=== PATIENT | female | born 1945 | race Caucasian/White ===

== ENCOUNTER → 2017-08-15 17:13 | Outpatient (CLI) | payer MEDICARE, OTHER, SELFPAY ==
[2017-08-15 17:26] LABS: Adenovirus,PCR Not Detected (NotDetected); Bordetella Pertussis Not Detected (NotDetected); Chlamydophila Pneumoniae, PCR Not Detected (NotDetected); Coronavirus 229E Not Detected (NotDetected); Coronavirus NL63 Not Detected (NotDetected); Coronavirus OC43 Not Detected (NotDetected); Coronovirus HKU1,PCR Not Detected (NotDetected); Human Metapneumovirus Not Detected (NotDetected); Influenza A, PCR Not Detected (NotDetected); Influenza AH1, 2009 Not Detected (NotDetected); Influenza AH1, PCR Not Detected (NotDetected); Influenza AH3,PCR Not Detected (NotDetected); Influenza B, PCR Not Detected (NotDetected); Mycoplasma Pneumoniae, PCR Not Detected (NotDected); Parainfluenza 1, PCR Not Detected (NotDetected); Parainfluenza 2, PCR Not Detected (NotDetected); Parainfluenza 3, PCR Not Detected (NotDetected); Parainfluenza 4, PCR Not Detected (NotDetected); Respiratory Syncytial Virus Not Detected (NotDetected); Rhinovirus/Enterovirus Not Detected (NotDetected)
--- NOTE | 2017-08-15 17:33 | XR_ITS ---
XR chest 2V HISTORY: ITS.REASON: PNEUMONIA ORDERING PHYSICIAN: Roopa London PATIENT AGE: 71 years COMPARISON: None available FINDINGS: The cardiomediastinal silhouette and pulmonary vascularity are within normal limits. The lungs are clear without infiltrates, suspicious nodules, or pleural effusions. There is mild hyperinflation with attenuation of the peripheral pulmonary vessels consistent with obstructive chronic bronchitis. There is blunting of the right CP angle consistent with chronic changes as seen on the previous chest CT of 01/06/2017 No acute bony abnormalities. IMPRESSION: No acute finding. COPD with chronic change
== END ==
PROVIDERS: PCP Nurse Practitioner; Visit Provider Nurse Practitioner
DX: J06.9 Acute upper respiratory infection, unspecified (principal); R05 Cough
CPT/HCPCS: 71046; 87486; 87581; 87633; 87798

== ENCOUNTER → 2018-04-04 12:47 | Outpatient (CLI) | payer MEDICARE, OTHER, SELFPAY ==
--- NOTE | 2018-04-04 12:53 | CT_ITS ---
CT chest wo con HISTORY: Follow-up pulmonary nodule , Right upper lobe nodule ORDERING PHYSICIAN: Darren Perez MD PATIENT AGE: 72 years COMPARISON: 01/06/2017 Technique: Axial images obtained with sagittal and coronal reformats. All CT scans at the facility use one or more dose reduction, viz: automated exposure control, ma/kV adjustment per patient size (including targeted exams where dose is matched to indication, i.e. head), or iterative reconstruction technique. FINDINGS: No mediastinal or hilar mass or adenopathy. Coronary artery calcifications are present. Normal heart size. No evidence of pericardial effusion. There is a 4 mm noncalcified nodule in the central aspect of the right upper lobe not significantly changed. Mild bronchial thickening noted. There are atelectatic changes in the right lung base. No new nodules are evident. No infiltrates or effusions. No evidence of aortic aneurysm. There is some tortuosity of the thoracic aorta. No acute bony anomalies. IMPRESSION: 1. Overall no change with no acute finding. 2. Stable or millimeter right upper lobe nodule. 3. Mild diffuse bronchial thickening suggesting chronic bronchitis.
== END ==
PROVIDERS: Family Provider Family Medicine; PCP Nurse Practitioner; Visit Provider Family Medicine
DX: R91.1 Solitary pulmonary nodule (principal); J44.1 Chronic obstructive pulmonary disease with (acute) exacerbation; H66.92 Otitis media, unspecified, left ear
CPT/HCPCS: 71250

== ENCOUNTER → 2018-07-20 16:30 | Outpatient (CLI) | payer MEDICARE, OTHER, SELFPAY ==
--- NOTE | 2018-07-20 16:36 | XR_ITS ---
EXAM: XR lumbar spine min 4V HISTORY: ITS.REASON: BILATERAL LOW BACK PAIN WITH LEFT SIDED SCIATICA ORDERING PHYSICIAN: Roopa London PATIENT AGE: 72 years COMPARISON: None FINDINGS: There is mild lumbar scoliosis convex left measures 23 degrees by the Copt technique. Endplate sclerosis with degenerative disc disease is present at L3-L4 and to a lesser degree at L4-L5. Facet arthritic changes are noted at L3 L4 L5 and S1. No fracture or dislocation. No lytic or blastic change. There is some mild anterolisthesis of L4 on L5 of 4 mm. There is straightening of lumbar lordosis. IMPRESSION: Levoscoliosis with degenerative disc disease and facet arthritic change
--- NOTE | 2018-07-20 16:36 | XR_ITS ---
XR hip LT 2-3V w/pelvis HISTORY: Left hip pain ITS.REASON: BILATERAL LOW BACK PAIN WITH LEFT SIDED SCIATICA ORDERING PHYSICIAN: Roopa London PATIENT AGE: 72 years COMPARISON: None FINDINGS: No fracture or dislocation is evident. No significant degenerative change. No lytic or blastic change. Unremarkable soft tissues IMPRESSION: Negative hip
== END ==
PROVIDERS: PCP Nurse Practitioner; Visit Provider Nurse Practitioner
DX: M54.42 Lumbago with sciatica, left side (principal)
CPT/HCPCS: 72110; 73502

== ENCOUNTER → 2018-09-04 11:14 | Outpatient (CLI) | payer MEDICARE, OTHER, SELFPAY | PROVIDERS: PCP Family Medicine; Visit Provider Nurse Practitioner | DX: M51.36 Other intervertebral disc degeneration, lumbar region (principal) ==

== ENCOUNTER → 2018-09-11 10:59 | Outpatient (CLI) | payer MEDICARE, OTHER, SELFPAY ==
--- NOTE | 2018-09-11 11:02 | MR_ITS ---
MR lumbar spine wo con, MR 3-d myelogram/MRCP HISTORY: Low back pain with left hip and buttock pain ITS.REASON: LUMBAR DDD ORDERING PHYSICIAN: Darren Perez MD PATIENT AGE: 73 years Comparison: 07/20/2018, 05/26/2012 TECHNIQUE: Standard multiplanar multiecho sequences are performed without contrast. 3-D MIP and myelographic images are also rendered and reviewed FINDINGS: There is mild lumbar scoliosis convex left measuring 24 degrees. The spinal cord and at the L1-L2 level. T12-L1: Unremarkable. L1-L2: Unremarkable. L2-L3: Degenerative disc disease with bulging disc along with facet and ligamentum flavum hypertrophy with moderate bilateral lateral recess narrowing greater on the right with mild right-sided foraminal narrowing. These findings have progressed compared to the previous exam. There is a rotary component clockwise in nature involving the lumbar spine with a scoliosis. L3-L4: Degenerative disc disease with bulging disc along with facet and ligamentum flavum hypertrophy with moderate bilateral lateral recess narrowing slightly greater on the right with moderate right-sided foraminal narrowing. These findings have progressed since the previous exam. There is narrowing of the canal at the L3-L4 level which has progressed since the previous study L4-L5: Mild degenerative disc disease with bulging disc. There is mild anterolisthesis of L4 of 3 mm. Facet and ligamentum hypertrophy with bilateral lateral recess narrowing and moderate bilateral foraminal narrowing. These findings have progressed. There has been prior laminectomy at L4-L5 and L5-S1. L5-S1: Degenerative disc disease with mild retrolisthesis of L5 of approximately 4 mm. There is bulging disc with facet and ligamentum flavum hypertrophy. There is severe left lateral recess narrowing and severe left-sided foraminal narrowing. These findings have progressed. There is minimal outpouching of the thecal sac posteriorly and on the left at the laminotomy site similar to the previous exam. No extruded herniated disc is evident. IMPRESSION: 1. Abnormal MRI of the lumbar spine with multilevel lumbar spondylosis with degenerative disc disease and bulging disc along with facet and ligamentum flavum hypertrophy with lateral recess and foraminal narrowing. These findings have progressed compared to the previous exam and are present from L2 to S1. Please see above for detailed description at each level. 2. Lumbar scoliosis convex left with a rotary component which is also progressed since the previous exam. 3. No extruded herniated disc
== END ==
PROVIDERS: PCP Family Medicine; Visit Provider Family Medicine
DX: M51.36 Other intervertebral disc degeneration, lumbar region (principal)
CPT/HCPCS: 72148; 76376

== ENCOUNTER → 2019-05-23 14:43 | Outpatient (CLI) | payer MEDICARE, OTHER, SELFPAY ==
--- NOTE | 2019-05-23 14:48 | XR_ITS ---
PROCEDURE: XR CHEST 2V CLINICAL HISTORY: COPD, BIBASILAR CRACKLES COMPARISON: CXR2V XR chest 2V from 08/15/[address] chest wo con from 04/04/2018 FINDINGS: The cardiomediastinal silhouette and pulmonary vascularity are within normal limits. The lungs are clear without infiltrates, suspicious nodules, or pleural effusions. No acute bony abnormalities. IMPRESSION: No acute findings. Dictated by: Jeison Mast MD 05/23/2019 17:53 Electronically signed by Jeison Mast MD in [place] 05/23/2019 17:53
== END ==
PROVIDERS: PCP Family Medicine; Visit Provider Nurse Practitioner
DX: R09.89 Other specified symptoms and signs involving the circulatory and respiratory systems (principal); J44.1 Chronic obstructive pulmonary disease with (acute) exacerbation
CPT/HCPCS: 71046

== ENCOUNTER → 2019-09-14 16:37 | Outpatient (CLI) | payer MEDICARE, OTHER, SELFPAY ==
--- NOTE | 2019-09-14 | XR_ITS ---
PROCEDURE: XR CHEST 2V CLINICAL HISTORY: PNEUMONIA COMPARISON: No exams were available for comparison FINDINGS: Mild emphysematous changes are noted with hyperexpansion lung moreira. There is mild scalloping of both hemidiaphragms anteriorly. The lung moreira are clear of infiltrate. Cardiac size is normal and there is no pulmonary congestion and no pleural fluid. There is a small hiatal hernia noted. IMPRESSION: Mild COPD, no acute chest pathology noted. Dictated by: Dr. Lee Harper MD 09/14/2019 17:[address] Lee Harper MD in [place] 09/14/2019 17:41
== END ==
PROVIDERS: PCP Family Medicine; Visit Provider Nurse Practitioner
DX: J18.9 Pneumonia, unspecified organism (principal)
CPT/HCPCS: 71046

== ENCOUNTER → 2020-01-03 17:04 | Outpatient (CLI) | payer MEDICARE, OTHER, SELFPAY ==
--- NOTE | 2020-01-03 | XR_ITS ---
PROCEDURE: XR CHEST 2V CLINICAL HISTORY: COUGH Cough, smoker COMPARISON: CXR2V XR chest 2V from 08/15/[address] chest wo con from 04/04/2018 XR CHEST 2V from 05/23/2019 XR CHEST 2V from 09/14/2019 FINDINGS: The cardiomediastinal silhouette and pulmonary vascularity are within normal limits. Changes of COPD. No lobar consolidation or collapse. Chronic changes are present in the left lung base No acute bony abnormalities. IMPRESSION: COPD. No change with no acute finding Dictated by: Jeison Mast MD 01/04/2020 05:37 Electronically signed by Jeison Mast MD in [place] 01/04/2020 05:37
[2020-01-03 17:48] LABS: Basophils # 0.1 K/mm3 (0-0.2); Basophils % 0.5 % (0.1-2.0); Eosinophils # 0.1 K/mm3 (0.0-0.4); Eosinophils % 0.9 % (0.1-12.0); Hematocrit 38.6 % (37.0-47.0); Hemoglobin 12.8 g/dL (12.2-16.2); Lymphocytes # 4.2 K/mm3 (0.7-4.5); Lymphocytes % 34.2 % (10-50); Mean Corpuscular HGB Conc 33.1 g/dL (31.8-35.4); Mean Corpuscular Hemoglobin 28.7 pg (27.0-31.2); Mean Corpuscular Volume 86.7 fl (81-99); Monocytes # 0.6 K/mm3 (0.1-1.0); Monocytes % 4.7 % (1.7-9.3); Neutrophils # 7.3 K/mm3 (1.8-7.8); Neutrophils % 59.6 % (37.0-80.0); Platelet Count 338 K/mm3 (142-424); Red Blood Count 4.46 M/mm3 (4.20-5.40); Red Cell Distribution Width 14.9 % (11.5-17.5); White Blood Count 12.2 K/mm3 (4.8-10.8)
[2020-01-03 17:52] LABS: Chloride 97 mmol/L (98-107); Sodium 134 mmol/L (136-145)
[2020-01-03 17:53] LABS: Potassium 3.7 mmoL/L (3.5-5.1)
[2020-01-03 17:56] LABS: Anion Gap 9.7 mEq/L (5-15); Blood Urea Nitrogen 26 mg/dl (7-17); Calcium 9.2 mg/dl (8.4-10.2); Carbon Dioxide 31 mmol/L (22.0-30.0); Estimated Glomerular Filt Rate 48 ml/min (>60); GFR (African American) 59 ML/MIN (>60); Glucose 92 mg/dl (74-100)
[2020-01-03 18:05] LABS: NT Pro Brain Natriuretic Pep. 84.1 pg/mL (0-450)
== END ==
PROVIDERS: PCP Nurse Practitioner; Visit Provider Nurse Practitioner
DX: R05 Cough (principal); R06.02 Shortness of breath
CPT/HCPCS: 36415; 71046; 80048; 83880; 85025

== ENCOUNTER → 2020-04-22 17:26 | Outpatient (CLI) | payer MEDICARE, OTHER, SELFPAY ==
[2020-04-22 18:07] LABS: Basophils # 0.1 K/mm3 (0-0.2); Basophils % 0.9 % (0.1-2.0); Eosinophils # 0.2 K/mm3 (0.0-0.4); Eosinophils % 1.9 % (0.1-12.0); Hematocrit 37.3 % (37.0-47.0); Hemoglobin 12.6 g/dL (12.2-16.2); Lymphocytes # 5.2 K/mm3 (0.7-4.5); Lymphocytes % 44.7 % (10-50); Mean Corpuscular HGB Conc 33.7 g/dL (31.8-35.4); Mean Corpuscular Hemoglobin 28.2 pg (27.0-31.2); Mean Corpuscular Volume 83.7 fl (81-99); Mean Platelet Volume 6.7 fl (7.4-10.4); Monocytes # 0.9 K/mm3 (0.1-1.0); Monocytes % 7.7 % (1.7-9.3); Neutrophils # 5.2 K/mm3 (1.8-7.8); Neutrophils % 44.8 % (37.0-80.0); Platelet Count 357 K/mm3 (142-424); Red Blood Count 4.45 M/mm3 (4.20-5.40); Red Cell Distribution Width 17.2 % (11.5-17.5); White Blood Count 11.6 K/mm3 (4.8-10.8)
[2020-04-22 18:11] LABS: Chloride 96 mmol/L (98-107); Potassium 3.7 mmoL/L (3.5-5.1); Sodium 137 mmol/L (136-145)
[2020-04-22 18:14] LABS: Alanine Aminotransferase 64 U/L (12-78); Albumin Level 4.2 g/dl (3.5-5.0); Albumin/Globulin Ratio 1.6 (1.1-1.8); Alkaline Phosphatase 78 U/L (38-126); Anion Gap 10.7 mEq/L (5-15); Aspartate Amino Transferase 63 U/L (14-36); Bilirubin,Total 0.4 mg/dl (0.2-1.3); Blood Urea Nitrogen 21 mg/dl (7-17); Carbon Dioxide 34 mmol/L (22.0-30.0); Estimated Glomerular Filt Rate 54 ml/min (>60); GFR (African American) 65 ML/MIN (>60); Globulin 2.7 g/dL (1.3-3.2); Glucose 105 mg/dl (74-100); Total Protein,Serum 6.9 g/dl (6.3-8.2)
[2020-04-25 10:24] LABS: Covid-19 Nasal PCR Sendout Lex NOT DETECTED
== END ==
PROVIDERS: PCP Family Medicine; Visit Provider Nurse Practitioner
DX: Z03.818 Encounter for observation for suspected exposure to other biological agents ruled out (principal)
CPT/HCPCS: 80053; 85025; U0004

== ENCOUNTER → 2020-07-22 15:28 | Outpatient (CLI) | payer MEDICARE, OTHER, SELFPAY ==
--- NOTE | 2020-07-22 | CA_ITS ---
APPROVED REPORT Right Lower Extremity Venous Study for DVT. [employer]: JACI Indications Lower Extremity Pain: Right Lower Extremity Edema: Right PAIN Vein Imaging CFV (R): compressive, spontaneous, phasic, augmentation SFJ (R): compressive, spontaneous, phasic, augmentation FEM (R): compressive, spontaneous, phasic, augmentation POP (R): compressive, spontaneous, phasic, augmentation DFV (R): compressive, spontaneous, phasic, augmentation PTV (R): compressive, spontaneous, phasic, augmentation GSV (R): compressive, spontaneous, phasic, augmentation SSV (R): compressive, spontaneous, phasic, augmentation Peroneals (R):compressive, spontaneous, phasic, augmentation GAS (R): compressive, spontaneous, phasic, augmentation Findings RLE negative for DVT/SVT. Vessels fully compressible. Conclusion RLE negative for DVT/SVT. Vessels fully compressible. Electronically signed by : Jeison Mast MD 07/23/2020 08:32:21
== END ==
PROVIDERS: PCP Family Medicine; Visit Provider Nurse Practitioner
DX: M79.604 Pain in right leg (principal)
CPT/HCPCS: 93971

== ENCOUNTER → 2021-06-30 14:25 | Outpatient (CLI) | payer MEDICARE, OTHER, SELFPAY ==
[2021-06-30 16:03] LABS: Basophils # 0.1 K/mm3 (0-0.2); Basophils % 0.5 % (0.1-2.0); Eosinophils % 0.1 % (0.1-12.0); Hematocrit 30.1 % (37.0-47.0); Hemoglobin 9.5 g/dL (12.2-16.2); Lymphocytes # 1.3 K/mm3 (0.7-4.5); Lymphocytes % 14.7 % (10-50); Mean Corpuscular HGB Conc 31.4 g/dL (31.8-35.4); Mean Corpuscular Hemoglobin 24.2 pg (27.0-31.2); Mean Corpuscular Volume 76.9 fl (81-99); Mean Platelet Volume 7.8 fl (7.4-10.4); Monocytes # 0.2 K/mm3 (0.1-1.0); Neutrophils # 7.5 K/mm3 (1.8-7.8); Neutrophils % 82.6 % (37.0-80.0); Platelet Count 556 K/mm3 (142-424); Red Blood Count 3.92 M/mm3 (4.20-5.40); Red Cell Distribution Width 16.3 % (11.5-17.5); White Blood Count 9.1 K/mm3 (4.8-10.8)
== END ==
PROVIDERS: PCP Nurse Practitioner; Visit Provider Nurse Practitioner
DX: Z20.822 Contact with and (suspected) exposure to COVID-19 (principal)
CPT/HCPCS: 36415; 85025; 87275; 87276; C9803; U0003; U0005

== ENCOUNTER → 2021-08-28 09:04 | Outpatient (CLI) | payer MEDICARE, OTHER, SELFPAY ==
--- NOTE | 2021-08-28 09:09 | CT_ITS ---
FINAL REPORT CLINICAL HISTORY: RLQ ABD PAIN FINDINGS: CT OF THE ABDOMEN AND PELVIS WITH CONTRAST Axial CT images of the abdomen and pelvis were obtained after the administration of oral and iv contrast. Coronal reformatted images were also obtained and reviewed.This study was performed with techniques to keep radiation doses as low as reasonably achievable (ALARA). Individualized dose reduction techniques using automated exposure control or adjustment of mA and/or kV according to the patient's size were employed. Abdomen: There is mild bibasilar atelectasis. There is a large hiatal hernia. The heart is normal in size. The liver has an unremarkable appearance, without evidence of mass or biliary ductal dilatation. There has been cholecystectomy. The spleen is unremarkable. No adrenal mass is present. The pancreas has an unremarkable appearance. The kidneys are normal, without evidence of mass or hydronephrosis. The aorta is normal in caliber. There is no free fluid or adenopathy. No mass or abnormal fluid collection is seen. There is levoscoliosis with 10 mm of left lateral subluxation of L4 on L5. Pelvis: The appendix is not well-visualized. There are no secondary signs suggesting appendicitis. The urinary bladder is unremarkable. No inflammatory process is seen. There is no evidence of mass or adenopathy. There is diverticulosis of the sigmoid colon. There has been hysterectomy. IMPRESSION: Large hiatal hernia. Sigmoid diverticulosis without evidence of diverticulitis. No evidence of appendicitis. Levoscoliosis with left lateral subluxation of L4 on L5. Reviewed, Interpreted and Dictated by Zia Carrion III, MD Transcribed by Geronimo Carlin Authenticated by Zia Carrion III, MD on 08/28/2021 11:10:57 AM [facility]
== END ==
PROVIDERS: PCP Nurse Practitioner; Visit Provider Nurse Practitioner
DX: R10.31 Right lower quadrant pain (principal)
CPT/HCPCS: 74177; Q9967

== ENCOUNTER → 2021-10-16 09:21 | Outpatient (CLI) | payer MEDICARE, OTHER, SELFPAY ==
--- NOTE | 2021-10-16 09:24 | XR_ITS ---
FINAL REPORT TECHNIQUE: Bone densitometry calculations of the lumbar spine and left hip were obtained. CLINICAL HISTORY: . osteoporosis FINDINGS: Using L1-4, the bone mineral density of the spine is 1.017 g/cm2, corresponding to T-score of -0.3. These values may be falsely elevated secondary to hypertrophic change. Using the left hip, the bone mineral density of the femoral neck is 0.614 g/cm2, corresponding to a T-score of -2.7. IMPRESSION: Osteoporosis: Lowest T-score is at or below -2.5. This patient's T-score meets the World Health Organization criteria for osteoporosis. Reviewed, Interpreted and Dictated by Zia Carrion III, MD Transcribed by Bushra Felipe Authenticated by Zia Carrion III, MD on 10/16/2021 11:01:11 AM [facility]
== END ==
PROVIDERS: PCP Nurse Practitioner; Visit Provider Nurse Practitioner
DX: Z78.0 Asymptomatic menopausal state (principal); M81.0 Age-related osteoporosis without current pathological fracture
CPT/HCPCS: 77080

== ENCOUNTER → 2022-06-24 14:40 | Outpatient (CLI) | payer MEDICARE, OTHER, SELFPAY ==
[2022-06-24 18:56] LABS: Basophils # 0.1 K/mm3 (0-0.2); Eosinophils # 0.2 K/mm3 (0.0-0.4); Eosinophils % 2.2 % (0.1-12.0); Hematocrit 37.3 % (37.0-47.0); Hemoglobin 11.8 g/dL (12.2-16.2); Lymphocytes # 3.8 K/mm3 (0.7-4.5); Lymphocytes % 39.6 % (10-50); Mean Corpuscular HGB Conc 31.5 g/dL (31.8-35.4); Mean Corpuscular Hemoglobin 27.6 pg (27.0-31.2); Mean Corpuscular Volume 87.4 fl (81-99); Monocytes # 0.8 K/mm3 (0.1-1.0); Monocytes % 7.8 % (1.7-9.3); Neutrophils # 4.7 K/mm3 (1.8-7.8); Neutrophils % 49.4 % (37.0-80.0); Platelet Count 547 K/mm3 (142-424); Red Blood Count 4.26 M/mm3 (4.20-5.40); Red Cell Distribution Width 14.2 % (11.5-17.5); White Blood Count 9.6 K/mm3 (4.8-10.8)
[2022-06-24 19:03] LABS: Cholesterol 170 mg/dl (140-200); HDL Cholesterol 83 mg/dl (40-60); Triglycerides 72 mg/dl (30-150); VLDL Cholesterol 14 mg/dL (0-40)
[2022-06-24 19:14] LABS: Direct LDL Cholesterol 64.04 mg/dL (100-129)
[2022-06-24 19:22] LABS: 25-OH Vitamin D, Total 56.5 ng/mL (30-100)
[2022-06-24 19:34] LABS: Thyroid Stimulating Hormone 1.56 uIU/mL (0.465-4.68)
[2022-06-24 19:53] LABS: Vitamin B12 428 pg/mL (239-931)
[2022-06-24 20:07] LABS: Hemoglobin A1C 6.1 % (4.0-6.0)
== END ==
PROVIDERS: PCP Nurse Practitioner; Visit Provider Nurse Practitioner
DX: D64.9 Anemia, unspecified (principal); E53.8 Deficiency of other specified B group vitamins; E55.9 Vitamin D deficiency, unspecified; E78.5 Hyperlipidemia, unspecified; I10 Essential (primary) hypertension; J44.9 Chronic obstructive pulmonary disease, unspecified; K21.9 Gastro-esophageal reflux disease without esophagitis; R05.9 Cough, unspecified; R73.01 Impaired fasting glucose
CPT/HCPCS: 80061; 82306; 82607; 83036; 84443; 85025

== ENCOUNTER → 2022-06-29 10:36 | Outpatient (CLI) | payer MEDICARE, OTHER, SELFPAY ==
--- NOTE | 2022-06-29 10:36 | US_ITS ---
FINAL REPORT CLINICAL HISTORY: right groin pain FINDINGS: Sonographic images were obtained of a palpable area in the right lower groin. A right inguinal hernia is noted containing bowel. In addition, several presumed reactive nodes are noted in the right inguinal region. IMPRESSION: Right inguinal hernia containing bowel. Several presumed reactive nodes in the right inguinal region. Reviewed, Interpreted and Dictated by Zia Carrion III, MD Transcribed by Bushra Felipe Authenticated and [facility]
== END ==
PROVIDERS: PCP Family Medicine; Visit Provider Nurse Practitioner
DX: R10.813 Right lower quadrant abdominal tenderness (principal)
CPT/HCPCS: 76882

== ENCOUNTER → 2022-09-09 10:57 | Outpatient (CLI) | payer MEDICARE, OTHER, SELFPAY ==
[2022-09-09 19:26] LABS: Adenovirus,PCR Not Detected (NotDetected); Bordetella Pertussis Not Detected (NotDetected); Chlamydophila Pneumoniae, PCR Not Detected (NotDetected); Coronavirus 229E Not Detected (NotDetected); Coronavirus NL63 Not Detected (NotDetected); Coronavirus OC43 Not Detected (NotDetected); Coronovirus HKU1,PCR Not Detected (NotDetected); Human Metapneumovirus Not Detected (NotDetected); Influenza A, PCR Not Detected (NotDetected); Influenza AH1, 2009 Not Detected (NotDetected); Influenza AH1, PCR Not Detected (NotDetected); Influenza AH3,PCR Not Detected (NotDetected); Influenza B, PCR Not Detected (NotDetected); Mycoplasma Pneumoniae, PCR Not Detected (NotDetected); Parainfluenza 1, PCR Not Detected (NotDetected); Parainfluenza 2, PCR Not Detected (NotDetected); Parainfluenza 3, PCR Not Detected (NotDetected); Parainfluenza 4, PCR Not Detected (NotDetected); Respiratory Syncytial Virus Not Detected (NotDetected); Rhinovirus/Enterovirus Not Detected (NotDetected)
[2022-09-09 19:32] LABS: Basophils % 0.5 % (0.1-2.0); Eosinophils # 0.1 K/mm3 (0.0-0.4); Eosinophils % 1.3 % (0.1-12.0); Hematocrit 28.2 % (37.0-47.0); Hemoglobin 9.3 g/dL (12.2-16.2); Lymphocytes # 2.4 K/mm3 (0.7-4.5); Lymphocytes % 34.7 % (10-50); Mean Corpuscular HGB Conc 32.9 g/dL (31.8-35.4); Mean Corpuscular Hemoglobin 25.8 pg (27.0-31.2); Mean Corpuscular Volume 78.6 fl (81-99); Mean Platelet Volume 8.5 fl (7.4-10.4); Monocytes # 0.7 K/mm3 (0.1-1.0); Monocytes % 9.9 % (1.7-9.3); Neutrophils # 3.7 K/mm3 (1.8-7.8); Neutrophils % 53.6 % (37.0-80.0); Platelet Count 535 K/mm3 (142-424); Red Blood Count 3.59 M/mm3 (4.20-5.40); Red Cell Distribution Width 16.4 % (11.5-17.5)
[2022-09-10 03:17] LABS: Coronavirus 19, PCR Detected (NotDetected)
== END ==
PROVIDERS: PCP Nurse Practitioner; Visit Provider Nurse Practitioner
DX: J06.9 Acute upper respiratory infection, unspecified (principal); R05.8 Other specified cough; B97.21 SARS-associated coronavirus as the cause of diseases classified elsewhere; R06.02 Shortness of breath
CPT/HCPCS: 85025; 87581; 87632; 87798; C9803; U0003; U0005

== ENCOUNTER → 2022-09-10 12:22 | Outpatient (CLI) | payer MEDICARE, OTHER, SELFPAY ==
--- NOTE | 2022-09-10 12:29 | XR_ITS ---
FINAL REPORT CLINICAL HISTORY: COPD exacerbation, pneumonia COMPARISON: 01/03/2020 FINDINGS: Two views of the chest were obtained. The heart size and pulmonary vascularity are within normal limits. The mediastinum is normal. The lungs are hyperinflated which is consistent with COPD. There is no pneumothorax. There is a moderate-sized hiatal hernia. The bony thorax is intact. IMPRESSION: No acute cardiopulmonary process. Reviewed, Interpreted and Dictated by Zia Carrion III, MD Transcribed by Bushra Felipe Authenticated and . [facility]
== END ==
PROVIDERS: PCP Family Medicine; Visit Provider Nurse Practitioner
DX: J18.9 Pneumonia, unspecified organism (principal); J44.1 Chronic obstructive pulmonary disease with (acute) exacerbation
CPT/HCPCS: 71046

== ENCOUNTER → 2022-09-16 16:35 | Outpatient (CLI) | payer MEDICARE, OTHER, SELFPAY ==
[2022-09-16 16:54] LABS: Blood Urea Nitrogen 25 mg/dl (7-17); Calcium 9.3 mg/dl (8.4-10.2); Carbon Dioxide 28 mmol/L (22.0-30.0); Chloride 104 mmol/L (98-107); Estimated Glomerular Filt Rate 61 ml/min (>60); GFR (African American) 73 ML/MIN (>60); Glucose 101 mg/dl (74-100); Sodium 137 mmol/L (136-145)
[2022-09-16 16:55] LABS: Anion Gap 9.1 mEq/L (5-15); Potassium 4.1 mmoL/L (3.5-5.1)
[2022-09-16 17:02] LABS: Basophils % 0.2 % (0.1-2.0); Eosinophils # 0.1 K/mm3 (0.0-0.4); Eosinophils % 0.7 % (0.1-12.0); Hematocrit 32.5 % (37.0-47.0); Hemoglobin 10.3 g/dL (12.2-16.2); Lymphocytes # 2.4 K/mm3 (0.7-4.5); Lymphocytes % 20.8 % (10-50); Mean Corpuscular HGB Conc 31.6 g/dL (31.8-35.4); Mean Corpuscular Hemoglobin 24.9 pg (27.0-31.2); Mean Corpuscular Volume 78.8 fl (81-99); Monocytes # 0.9 K/mm3 (0.1-1.0); Monocytes % 7.4 % (1.7-9.3); Neutrophils # 8.2 K/mm3 (1.8-7.8); Neutrophils % 70.9 % (37.0-80.0); Platelet Count 671 K/mm3 (142-424); Red Blood Count 4.13 M/mm3 (4.20-5.40); Red Cell Distribution Width 17.1 % (11.5-17.5); White Blood Count 11.6 K/mm3 (4.8-10.8)
== END ==
PROVIDERS: Visit Provider Nurse Practitioner
DX: J18.9 Pneumonia, unspecified organism (principal); E55.9 Vitamin D deficiency, unspecified
CPT/HCPCS: 80048; 85025

== ENCOUNTER → 2023-01-13 23:00 | Outpatient (CLI) | payer MEDICARE, OTHER, SELFPAY ==
[2023-01-13 18:23] LABS: Basophils # 0.1 K/mm3 (0-0.2); Basophils % 0.9 % (0.1-2.0); Eosinophils # 0.2 K/mm3 (0.0-0.4); Eosinophils % 2.3 % (0.1-12.0); Hematocrit 40.7 % (37.0-47.0); Hemoglobin 12.5 g/dL (12.2-16.2); Lymphocytes # 3.6 K/mm3 (0.7-4.5); Lymphocytes % 34.6 % (10-50); Mean Corpuscular HGB Conc 30.7 g/dL (31.8-35.4); Mean Corpuscular Hemoglobin 27.1 pg (27.0-31.2); Mean Corpuscular Volume 88.3 fl (81-99); Mean Platelet Volume 8.2 fl (7.4-10.4); Monocytes % 9.6 % (1.7-9.3); Neutrophils # 5.5 K/mm3 (1.8-7.8); Neutrophils % 52.7 % (37.0-80.0); Platelet Count 447 K/mm3 (142-424); Red Blood Count 4.61 M/mm3 (4.20-5.40); Red Cell Distribution Width 16.2 % (11.5-17.5); White Blood Count 10.5 K/mm3 (4.8-10.8)
== END ==
PROVIDERS: PCP Nurse Practitioner; Visit Provider Nurse Practitioner
DX: J06.9 Acute upper respiratory infection, unspecified (principal); J44.1 Chronic obstructive pulmonary disease with (acute) exacerbation; R09.89 Other specified symptoms and signs involving the circulatory and respiratory systems
CPT/HCPCS: 85025; 87635; C9803; U0003; U0005

== ENCOUNTER → 2023-01-14 11:46 | Outpatient (CLI) | payer MEDICARE, OTHER, SELFPAY ==
--- NOTE | 2023-01-14 11:53 | XR_ITS ---
FINAL REPORT CLINICAL HISTORY: COPD exacerbation, LLL pneumonia COMPARISON: 09/10/2022 FINDINGS: There is no evidence of effusion or other pleural disease. Emphysema is noted. The mediastinum has a normal appearance. There is a moderate-sized hiatal hernia which is stable. The cardiac silhouette is unremarkable. IMPRESSION: No acute process. Reviewed, Interpreted and Dictated by Suraj Guzman MD Transcribed by Ramonita Mac Authenticated and [facility]
== END ==
PROVIDERS: PCP Nurse Practitioner; Visit Provider Nurse Practitioner
DX: J06.9 Acute upper respiratory infection, unspecified (principal); J44.1 Chronic obstructive pulmonary disease with (acute) exacerbation
CPT/HCPCS: 71046

== ENCOUNTER 2023-09-16 16:36 | Outpatient (CLI) | payer MEDICARE, OTHER, SELFPAY ==
[2023-09-15 20:00] LABS: Basophils % 0.1 % (0.1-2.0); Eosinophils % 0.3 % (0.1-12.0); Hematocrit 23.5 % (37.0-47.0); Hemoglobin 7.1 g/dL (12.2-16.2); Lymphocytes # 2.4 K/mm3 (0.7-4.5); Lymphocytes % 28.5 % (10-50); Mean Corpuscular HGB Conc 30.2 g/dL (31.8-35.4); Mean Corpuscular Hemoglobin 22.1 pg (27.0-31.2); Mean Corpuscular Volume 73.1 fl (81-99); Monocytes # 0.5 K/mm3 (0.1-1.0); Neutrophils # 5.5 K/mm3 (1.8-7.8); Neutrophils % 64.9 % (37.0-80.0); Platelet Count 448 K/mm3 (142-424); Red Blood Count 3.21 M/mm3 (4.20-5.40); White Blood Count 8.5 K/mm3 (4.8-10.8)
[2023-09-15 20:03] LABS: Red Cell Distribution Width 28.6 % (11.5-17.5)
[2023-09-15 20:09] LABS: Alanine Aminotransferase 27 U/L (12-78); Albumin Level 3.8 g/dl (3.5-5.0); Albumin/Globulin Ratio 1.6 (1.1-1.8); Alkaline Phosphatase 64 U/L (38-126); Aspartate Amino Transferase 37 U/L (14-36); Bilirubin,Total 0.3 mg/dl (0.2-1.3); Blood Urea Nitrogen 16 mg/dl (7-17); Calcium 9.4 mg/dl (8.4-10.2); Carbon Dioxide 28 mmol/L (22.0-30.0); Chloride 105 mmol/L (98-107); Estimated Glomerular Filt Rate 60 ml/min (>60); GFR (African American) 73 ML/MIN (>60); Globulin 2.4 g/dL (1.3-3.2); Glucose 94 mg/dl (74-100); Sodium 136 mmol/L (136-145); Total Protein,Serum 6.2 g/dl (6.3-8.2)
[2023-09-15 20:39] LABS: Thyroid Stimulating Hormone 1.03 uIU/mL (0.465-4.68)
[2023-09-15 20:58] LABS: Vitamin B12 297 pg/mL (239-931)
[2023-09-16 01:44] LABS: Iron 169 ug/dL (37-170)
[2023-09-16 01:53] LABS: Total Iron Binding Capacity 542 ug/dL (265-497)
[2023-09-16 19:44] LABS: Hemoglobin A1C 5.5 % (4.0-6.0)
== END 2023-09-16 23:59 ==
LOC: LAB.DROPOF 16:37
PROVIDERS: PCP Nurse Practitioner; Visit Provider Nurse Practitioner
DX: D64.9 Anemia, unspecified (principal); E53.8 Deficiency of other specified B group vitamins; E55.9 Vitamin D deficiency, unspecified; J44.1 Chronic obstructive pulmonary disease with (acute) exacerbation; K21.9 Gastro-esophageal reflux disease without esophagitis; Z79.899 Other long term (current) drug therapy
CPT/HCPCS: 80053; 82607; 83036; 83540; 83550; 84443; 85025

== ENCOUNTER 2023-09-17 14:56 | Outpatient (CLI) | payer MEDICARE, OTHER, SELFPAY ==
--- NOTE | 2023-09-17 14:58 | XR_ITS ---
PROCEDURE INFORMATION: Exam: XR Chest Exam date and time: 09/17/2023 2:54 PM Age: 78 years old Clinical indication: Shortness of breath and other: Weakness, dizziness; Additional info: Copd with exacerbation, dizziness TECHNIQUE: Imaging protocol: Radiologic exam of the chest. Views: 2 views. COMPARISON: CR XR CHEST 2V 01/14/2023 12:12 PM FINDINGS: Lungs: Regions of bronchiectasis at the lung bases. Pleural spaces: Unremarkable. No pleural effusion. No pneumothorax. Heart/Mediastinum: Unremarkable. No cardiomegaly. Bones/joints: Unremarkable. IMPRESSION: No evidence of acute cardiopulmonary disease.
== END 2023-09-17 23:59 ==
PROVIDERS: PCP Family Medicine; Visit Provider Nurse Practitioner
DX: J44.1 Chronic obstructive pulmonary disease with (acute) exacerbation (principal); R42 Dizziness and giddiness
CPT/HCPCS: 71046

== ENCOUNTER 2023-09-26 19:47 | Outpatient (CLI) | payer MEDICARE, OTHER, SELFPAY ==
[2023-09-26 19:10] LABS: Basophils % 0.1 % (0.1-2.0); Eosinophils % 0.1 % (0.1-12.0); Hematocrit 33.7 % (37.0-47.0); Hemoglobin 10.4 g/dL (12.2-16.2); Lymphocytes # 1.5 K/mm3 (0.7-4.5); Lymphocytes % 12.8 % (10-50); Mean Corpuscular HGB Conc 30.8 g/dL (31.8-35.4); Mean Corpuscular Hemoglobin 25.5 pg (27.0-31.2); Mean Corpuscular Volume 82.9 fl (81-99); Mean Platelet Volume 8.5 fl (7.4-10.4); Monocytes # 0.5 K/mm3 (0.1-1.0); Monocytes % 4.2 % (1.7-9.3); Neutrophils # 9.6 K/mm3 (1.8-7.8); Neutrophils % 82.8 % (37.0-80.0); Platelet Count 657 K/mm3 (142-424); Red Blood Count 4.07 M/mm3 (4.20-5.40); White Blood Count 11.6 K/mm3 (4.8-10.8)
[2023-09-26 19:15] LABS: Red Cell Distribution Width 30.4 % (11.5-17.5)
== END 2023-09-26 23:59 ==
PROVIDERS: PCP Nurse Practitioner; Visit Provider Nurse Practitioner
DX: E55.9 Vitamin D deficiency, unspecified (principal); Z68.25 Body mass index [BMI] 25.0-25.9, adult
CPT/HCPCS: 85025

== ENCOUNTER 2024-01-20 09:10 | Outpatient (CLI) | payer MEDICARE, OTHER, SELFPAY ==
--- NOTE | 2024-01-20 09:15 | XR_ITS ---
FINAL REPORT CLINICAL HISTORY: COPD, LLL rales COMPARISON: 01/14/2023 FINDINGS: TWO-VIEW CHEST The heart size is normal. The mediastinum is normal. The lungs are hyperinflated consistent with COPD. There are mild but worsening bibasilar opacities, may represent atelectasis or pneumonia. There is a moderate hiatal hernia. There is no pneumothorax. IMPRESSION: Mild but worsening bibasilar atelectasis or pneumonia. Reviewed, Interpreted and Dictated by Zia Carrion III, MD Transcribed by Daisy Cline Authenticated and [facility]
== END 2024-01-20 23:59 | disposition home or self-care (01) ==
LOC: RAD 09:12
PROVIDERS: PCP Nurse Practitioner; Visit Provider Nurse Practitioner
DX: J44.1 Chronic obstructive pulmonary disease with (acute) exacerbation (principal); R09.89 Other specified symptoms and signs involving the circulatory and respiratory systems; Z72.0 Tobacco use
CPT/HCPCS: 71046

== ENCOUNTER 2024-01-25 12:57 | Outpatient (CLI) | payer MEDICARE, OTHER, SELFPAY ==
[2024-01-25 18:43] LABS: Basophils # 0.1 K/mm3 (0-0.2); Basophils % 0.4 % (0.1-2.0); Eosinophils # 0.1 K/mm3 (0.0-0.4); Eosinophils % 0.8 % (0.1-12.0); Hematocrit 45.2 % (37.0-47.0); Hemoglobin 14.2 g/dL (12.2-16.2); Lymphocytes # 1.9 K/mm3 (0.7-4.5); Lymphocytes % 13.9 % (10-50); Mean Corpuscular HGB Conc 31.4 g/dL (31.8-35.4); Mean Corpuscular Hemoglobin 28.7 pg (27.0-31.2); Mean Corpuscular Volume 91.4 fl (81-99); Monocytes # 0.8 K/mm3 (0.1-1.0); Monocytes % 5.5 % (1.7-9.3); Neutrophils # 10.9 K/mm3 (1.8-7.8); Neutrophils % 79.4 % (37.0-80.0); Platelet Count 480 K/mm3 (142-424); Red Blood Count 4.95 M/mm3 (4.20-5.40); Red Cell Distribution Width 16.5 % (11.5-17.5); White Blood Count 13.7 K/mm3 (4.8-10.8)
[2024-01-25 19:00] LABS: Alanine Aminotransferase 26 U/L (12-78); Albumin Level 4.1 g/dl (3.5-5.0); Albumin/Globulin Ratio 1.4 (1.1-1.8); Alkaline Phosphatase 63 U/L (38-126); Aspartate Amino Transferase 37 U/L (14-36); Bilirubin,Total 0.4 mg/dl (0.2-1.3); Blood Urea Nitrogen 34 mg/dl (7-17); Calcium 9.7 mg/dl (8.4-10.2); Carbon Dioxide 29 mmol/L (22.0-30.0); Chloride 101 mmol/L (98-107); Estimated Glomerular Filt Rate 40 ml/min (>60); GFR (African American) 48 ML/MIN (>60); Globulin 2.9 g/dL (1.3-3.2); Glucose 91 mg/dl (74-100); Sodium 137 mmol/L (136-145)
== END 2024-01-25 23:59 | disposition home or self-care (01) ==
LOC: LAB.DROPOF 01-26 10:06
PROVIDERS: PCP Nurse Practitioner; Visit Provider Nurse Practitioner
DX: J18.9 Pneumonia, unspecified organism (principal)
CPT/HCPCS: 80053; 85025

== ENCOUNTER 2024-02-14 11:36 | Outpatient (CLI) | payer MEDICARE, OTHER, SELFPAY ==
--- NOTE | 2024-02-14 11:39 | XR_ITS ---
FINAL REPORT CLINICAL HISTORY: f/u pneumonia COMPARISON: 01/20/2024 FINDINGS: Two views of the chest were obtained. The heart size and pulmonary vascularity are within normal limits. There is a moderate hiatal hernia. The lungs are hyperinflated consistent with COPD. Mild bibasilar atelectasis or scarring is noted. There is no pneumothorax. The bony thorax is intact. IMPRESSION: Mild bibasilar atelectasis or scarring. Reviewed, Interpreted and Dictated by Zia Carrion III, MD Transcribed by Ramonita Mac Authenticated and [facility]
== END 2024-02-14 23:59 | disposition home or self-care (01) ==
LOC: RAD 11:37
PROVIDERS: PCP Family Medicine; Visit Provider Nurse Practitioner
DX: J18.9 Pneumonia, unspecified organism (principal); Z72.0 Tobacco use
CPT/HCPCS: 71046

== ENCOUNTER 2024-02-20 10:23 | Outpatient (CLI) | payer MEDICARE, OTHER, SELFPAY ==
[2024-02-20 18:47] LABS: Basophils # 0.1 K/mm3 (0-0.2); Basophils % 0.8 % (0.1-2.0); Eosinophils # 0.1 K/mm3 (0.0-0.4); Hematocrit 40.9 % (37.0-47.0); Hemoglobin 12.7 g/dL (12.2-16.2); Lymphocytes # 3.3 K/mm3 (0.7-4.5); Lymphocytes % 36.4 % (10-50); Mean Corpuscular HGB Conc 31.1 g/dL (31.8-35.4); Mean Corpuscular Hemoglobin 29.6 pg (27.0-31.2); Mean Corpuscular Volume 95.2 fl (81-99); Mean Platelet Volume 9.5 fl (7.4-10.4); Monocytes # 0.8 K/mm3 (0.1-1.0); Monocytes % 8.6 % (1.7-9.3); Neutrophils # 4.8 K/mm3 (1.8-7.8); Neutrophils % 53.3 % (37.0-80.0); Platelet Count 431 K/mm3 (142-424); Red Blood Count 4.29 M/mm3 (4.20-5.40)
[2024-02-20 19:17] LABS: Anion Gap 10.1 mEq/L (5-15); Blood Urea Nitrogen 22 mg/dl (7-17); Calcium 10.1 mg/dl (8.4-10.2); Carbon Dioxide 29 mmol/L (22.0-30.0); Chloride 107 mmol/L (98-107); Chol/HDL Ratio 2.2 (1-3.5); Cholesterol 167 mg/dl (140-200); Estimated Glomerular Filt Rate 69 ml/min (>60); GFR (African American) 84 ML/MIN (>60); Glucose 97 mg/dl (74-100); HDL Cholesterol 75 mg/dl (40-60); Potassium 4.1 mmoL/L (3.5-5.1); Sodium 142 mmol/L (136-145); Triglycerides 86 mg/dl (30-150); VLDL Cholesterol 17 mg/dL (0-40)
[2024-02-20 19:27] LABS: Direct LDL Cholesterol 69.78 mg/dL (100-129)
[2024-02-20 19:34] LABS: 25-OH Vitamin D, Total 68.2 ng/mL (30-100)
[2024-02-20 19:51] LABS: Thyroid Stimulating Hormone 0.25 uIU/mL (0.465-4.68)
[2024-02-20 20:49] LABS: Iron 71 ug/dL (37-170)
[2024-02-20 20:53] LABS: Vitamin B12 > 1000 pg/mL (239-931)
[2024-02-20 20:59] LABS: Total Iron Binding Capacity 381 ug/dL (265-497)
[2024-02-20 21:10] LABS: Creatinine,Urine Random 68 mg/dL (Not Estab.); Microalbumin < 6.000 mg/L (0-16.7)
== END 2024-02-20 23:59 | disposition home or self-care (01) ==
LOC: LAB.DROPOF 02-21 10:24
PROVIDERS: PCP Nurse Practitioner; Visit Provider Nurse Practitioner
DX: D64.9 Anemia, unspecified; I10 Essential (primary) hypertension; E78.5 Hyperlipidemia, unspecified; E53.8 Deficiency of other specified B group vitamins; E55.9 Vitamin D deficiency, unspecified; I25.10 Atherosclerotic heart disease of native coronary artery without angina pectoris; R06.02 Shortness of breath
CPT/HCPCS: 80048; 80061; 82043; 82306; 82570; 82607; 83540; 83550; 84443; 85025

== ENCOUNTER 2024-03-06 11:00 | Outpatient (CLI) | payer MEDICARE, OTHER, SELFPAY ==
--- NOTE | 2024-03-06 11:00 | NM_ITS ---
APPROVED REPORT Exam: Nuclear Stress Test Indication: CAD, SOB, Fatigue, High cholesterol, Tobacco use, Family history Patient Location: Outpatient Stress Tech: America Norton NM Tech:Mary Garcia, ARRT, RT (R)(N) Ht: 5 ft 1 in Wt: 123 lbs Bra Size: 36C HR: 71 bpm BP: 135/62 mmHg BSA: 1.54 m2 Rhythm: NSR TID: 0.86 BMI: 23.2 History: CAD, SOB, Fatigue, High cholesterol, Tobacco use, Family history Procedure: Patient received 0.4 mg of intravenous Lexiscan, resting heart rate 71 bpm, resting blood pressure 135/62 mmHg, with Lexiscan maximum heart rate achieved was 91 bpm which is % of the maximum predicted heart rate and blood pressure was 140/50 mmHg. With Lexiscan, patient denied any complaint of chest pain. Cardiac Stress and Resting SPECT Images: Cardiac Stress and Resting SPECT images were obtained using technetium 99m Myoview 32.5 mCi stress and 10.89 mCi at rest. Technically difficult study due to significant soft tissue overlap with the cardiac borders. Also, the patient could not lie on her abdomen. Therefore, prone stress imaging could not be obtained. This may affect the diagnostic interpretation of the study findings. Resting and stress imaging in supine positions demonstrate a small sized, moderate, partially reversible perfusion defect in the basal inferior LV wall. Gated imaging demonstrates normal global and regional LV systolic function. LVEF is calculated at > 75%. Conclusion: Technically difficult study. Small sized, moderate, partially reversible perfusion defect in the basal inferior LV wall. Findings are suggestive of partial reversible ischemia. Gated imaging demonstrates normal global and regional LV systolic function. LVEF is calculated at > 75%. Electronically signed by : Kirstin Huang MD 03/07/2024 00:05:38
--- NOTE | 2024-03-06 13:50 | CA_ITS ---
APPROVED REPORT Exam: Pharmacologic Technologist: America Norton Ht: 5 ft 1 in Wt: 122 lbs BSA: 1.53 m2 HR: 72 bpm BP: 135/62 mmHg Indications: Shortness of Breath, CAD, Abnormal EKG Medical History Medications: Potassium Chloride,,,,, Aspirin,,,,, Ferrous sulfate,,,,, Vitamin B12,,,,, Vitamin D3,,,,, Pantoprazole,,,,, HCTZ,,,,, Duoneb,,,,, Ropinirole,,,,, Naproxen,,,,, Albuterol,,,,, ProMETHAZINE,,,,, Stress Test Details Test: LEXISCAN HR Resting HR: 71 bpm Max Heart Rate (APMHR): 141 bpm Max HR Achieved: 91 bpm Target HR (85% APMHR): 120 bpm % of APMHR: 65 Recovery HR: 88 bpm BP Resting BP: 135.0/62.0 mmHg Max BP: 140.0/50.0 mmHg Recovery BP: 120.0/54.0 mmHg ECG Resting ECG: Sinus rhythm Stress ECG: No significant ST changes Arrhythmia: PVCs Clinical Exercise duration: 04:00 min Highest Stage Achieved: Exercise capacity: 1.0 METs Stress ECG Conclusion Symptoms: Chest tightness, dyspnea Arrhythmias/Ectopy: PVC ST-T Changes: No significant ST changes Conclusion: EKG portion unremarkable due to Lexiscan infusion. Myoview images reported separately. Test Summary REST . . . . . . . Resting REST 02:18 . . 71 . 135/ 62 . . Stage 1 . . . . . . . Myoview Injected Stage 1 01:00 . . 86 . . . . Stage 2 01:00 . . 89 . 124/ 55 . . Stage 3 01:00 . . 87 . 140/ 50 . . Stage 4 01:00 . . 87 . 106/ 47 . Stop exercise at 04:00 RECOVERY 01:00 . . 85 . . . . RECOVERY 02:00 . . 87 . . . . RECOVERY 03:00 . . 85 . 103/ 39 . . RECOVERY 04:00 . . 85 . 115/ 52 . . RECOVERY 05:00 . . 84 . 120/ 54 . . RECOVERY 05:38 . . 91 . 120/ 54 . . Electronically signed by : Kirstin Huang MD 03/07/2024 00:03:25
== END 2024-03-06 23:59 | disposition home or self-care (01) ==
LOC: RAD 11:00
PROVIDERS: PCP Nurse Practitioner; Visit Provider Nurse Practitioner
DX: R06.02 Shortness of breath (principal); I25.10 Atherosclerotic heart disease of native coronary artery without angina pectoris; Z72.0 Tobacco use
CPT/HCPCS: 78452; 93017; 93018; A9502; J2785

== ENCOUNTER 2024-03-30 08:12 | Day surgery (SDC) | payer MEDICARE, OTHER, SELFPAY ==
[2024-03-30] VITALS (10 sets, daily range): BP systolic 106–150; BP diastolic 54–66; PULSE 58–72; RESP 16–20; TEMP 36.7; O2SAT 94–98; BMI 22.6
--- NOTE | 2024-03-30 07:08 | IR_ITS ---
APPROVED REPORT Patient Location: Outpatient Aquatics Instructor: AARON Dover RT (R) PROCEDURES Left heart catheterization Left ventriculogram Selective coronary angiogram Informed consent was obtained prior to the procedure. COMPLICATIONS None Estimated Blood Loss: Less than 10 mls TECHNIQUE One percent lidocaine used to anesthetize the right anterior aspect of the wrist. The right radial artery was accessed via the Seldinger technique. A 6 German sheath was placed in the right radial artery. 2.5 mg of Verapamil, 800 mcg of nitroglycerin, 1mg Lidocaine and 5000 U Heparin were given through the arterial sheath. The papa catheter was also used to perform left heart catheterization, left ventriculogram and selective coronary angiogram. At the end of the procedure the sheath was removed good hemostasis was achieved using Traclet band, patient was transferred to the postop holding area in stable condition. ANGIOGRAPHIC RESULTS The left main artery Normal The left anterior descending artery Has proximal and mid vessel diffuse 30 and 40% stenoses large first diagonal artery has proximal concentric 30 to 40% stenosis The circumflex artery Nondominant with proximal and mid vessel 20% stenoses The right coronary artery Large dominant with proximal and mid vessel diffuse 30 to 40% stenosis The CABRERA ventriculogram reveals Normal 65% The left ventricular end-diastolic pressure 15 mmHg IMPRESSION Diffuse mild to moderate disease as described above Normal ejection fraction Normal left ventricular end-diastolic pressure PLAN 1. Medical management with aggressive risk factor modification Electronically signed by : Scar Avila MD 03/30/2024 12:20:58
[2024-03-30 08:54] LABS: Basophils # 0.1 K/mm3 (0-0.2); Basophils % 1.2 % (0.1-2.0); Eosinophils # 0.3 K/mm3 (0.0-0.4); Eosinophils % 2.2 % (0.1-12.0); Lymphocytes # 2.9 K/mm3 (0.7-4.5); Lymphocytes % 23.7 % (10-50); Mean Corpuscular HGB Conc 31.2 g/dL (31.8-35.4); Mean Corpuscular Hemoglobin 30.1 pg (27.0-31.2); Mean Corpuscular Volume 96.5 fl (81-99); Mean Platelet Volume 7.4 fl (7.4-10.4); Monocytes # 0.8 K/mm3 (0.1-1.0); Monocytes % 6.2 % (1.7-9.3); Neutrophils # 8.3 K/mm3 (1.8-7.8); Neutrophils % 66.8 % (37.0-80.0); Platelet Count 372 K/mm3 (142-424); Red Blood Count 4.66 M/mm3 (4.20-5.40); Red Cell Distribution Width 15.7 % (11.5-17.5); White Blood Count 12.4 K/mm3 (4.8-10.8)
[2024-03-30 08:57] LABS: Anion Gap 10.9 mEq/L (5-15); Blood Urea Nitrogen 25 mg/dl (7-17); Calcium 9.8 mg/dl (8.4-10.2); Carbon Dioxide 26 mmol/L (22.0-30.0); Chloride 107 mmol/L (98-107); Creatinine Clearance Estimated 39 mL/min (50-200); Estimated Glomerular Filt Rate 53 ml/min (>60); GFR (African American) 65 ML/MIN (>60); Glucose 71 mg/dl (74-100); Potassium 3.9 mmoL/L (3.5-5.1); Sodium 140 mmol/L (136-145)
[2024-03-30] MEDS: LIDOCAINE 1% 10ML MDV 20 ML IJ (10:33)
[2024-03-30] MEDS: NITROGLYCERIN 800MCG/8ML SYR (CATH LAB) 800 MCG IA (10:33)
[2024-03-30] MEDS: HEPARIN 1,000 UNITS/ML 10ML VIAL (CATH LAB) 10000 UNIT IV (10:33)
[2024-03-30] MEDS: VERAPAMIL 2.5MG/ML 2ML VIAL 2.5 MG IV (10:33)
[2024-03-30] MEDS: diphenhydrAMINE 50MG/ML VIAL 50 MG IV (10:34)
[2024-03-30] MEDS: 0.9 % SODIUM CHLORIDE 500 ML 25 ML IV (10:34)
[2024-03-30] MEDS: HEPARIN 1,000 UNITS/500ML NS (CATH LAB) 3000 UNIT IV (10:34)
[2024-03-30] MEDS: MIDAZOLAM HCL 1MG/1ML 5ML VIAL 1 MG IV (11:16)
[2024-03-30] MEDS: FENTANYL 100MCG/2ML VIAL 50 MCG IV (11:17)
== END 2024-03-30 13:46 | disposition home or self-care (01) ==
LOC: CATHLAB 08:13
PROVIDERS: PCP Family Medicine; Visit Provider Internal Medicine
DX: R93.1 Abnormal findings on diagnostic imaging of heart and coronary circulation (principal); I25.118 Atherosclerotic heart disease of native coronary artery with other forms of angina pectoris; R61 Generalized hyperhidrosis; R06.09 Other forms of dyspnea; R94.31 Abnormal electrocardiogram [ECG] [EKG]; Z79.899 Other long term (current) drug therapy; E55.9 Vitamin D deficiency, unspecified; I70.203 Unspecified atherosclerosis of native arteries of extremities, bilateral legs
CPT/HCPCS: 80048; 85025; 93458; 99152; C1725; C1769; J1200; J1644; J2250; J3010

== ENCOUNTER 2024-05-02 10:52 | Outpatient (CLI) | payer MEDICARE, OTHER, SELFPAY ==
--- NOTE | 2024-05-02 10:55 | XR_ITS ---
FINAL REPORT CLINICAL HISTORY: COPD exacerbation, SOB COMPARISON: 02/14/2024 FINDINGS: 2 views of the chest were obtained . The heart is normal in size. The mediastinum is within normal limits. The lungs are clear. There is no pneumothorax. There is a moderate size hiatal hernia, stable from prior exam. Osseous structures are unremarkable. IMPRESSION: No acute cardiopulmonary process. Reviewed, Interpreted and Dictated by Suraj Guzman MD Transcribed by Marylu Ojeda Authenticated and [facility]
== END 2024-05-02 23:59 | disposition home or self-care (01) ==
LOC: RAD 10:53
PROVIDERS: PCP Nurse Practitioner; Visit Provider Nurse Practitioner
DX: J44.1 Chronic obstructive pulmonary disease with (acute) exacerbation (principal); R06.02 Shortness of breath; F17.200 Nicotine dependence, unspecified, uncomplicated
CPT/HCPCS: 71046

== ENCOUNTER 2025-04-18 14:52 | Outpatient (CLI) | payer MEDICARE, OTHER, SELFPAY ==
--- OUTSIDE RECORDS SUMMARY | 2025-04-18 15:07 | XMS_ITS | Clinical Summary ---
Author Organization [facility] Address [address] [place] [phone] Phone Care Team Providers Care Tub Rider Name Role Phone Unavailable Unavailable Conditions or Problems No information available. Medications No information available. Medications Administered No information available. Allergies, Adverse Reactions, Alerts No information available. Results No information available. Plan of Care No information available. Procedures No information available. Vital Signs No information available. Immunizations No information available. Advance Directives No information available.
[2025-04-18 15:08] LABS: Hematocrit 43.4 % (37.0-47.0); Hemoglobin 14.0 g/dL (12.2-16.2); Immature Granulocytes % 0.3 %; Mean Corpuscular HGB Conc 32.3 g/dL (31.8-35.4); Mean Corpuscular Hemoglobin 30.0 pg (27.0-31.2); Mean Corpuscular Volume 92.9 fl (81-99); Nucleated Red Blood Cells % 0 %; Platelet Count 336 K/mm3 (142-424); Red Blood Count 4.67 M/mm3 (4.20-5.40); Red Cell Distribution Width-SD 48.3 fL; White Blood Count 11.2 K/mm3 (4.8-10.8)
--- OUTSIDE RECORDS SUMMARY | 2025-04-18 15:08 | XMS_ITS | Encounter Summary ---
Author Organization [facility] Address [facility] [place] [address] Care Team Providers Care Vocational Education Teacher Name Role Phone Darren Perez MD Primary Care Provider [phone] Amara Monet NP Unavailable Unavailabl e Son Fraser MD Unavailable [phone] Lamberto Rice MD Unavailable [phone] Kathy Deluna MD Unavailable [phone] Roopa London Primary Care Provider [phone] Encounter Details Date Type Department Care Team (Late st Contact Info) Description 05/11/2019 Abstract [facility] Physicians - Heart & Vascular, [place] [address] [place] [address] Tanvir Velazquez MD [address] [place] [address] [address] [place] [address] Social History Tobacco Use Types Packs/Day Years Used Date Smoking Tobacco: Every Day Cigarettes 1 47 Smokeless Tobacco: Never Alcohol Use Standard Drinks/Week Comments No 0 (1 standard drink = 0.6 oz pur e alcohol) Comments No Sex and Gender Information Value Date Recorded Sex Assigned at Not on file Legal Sex Female 2:24 PM EST Gender Identity Not on file Sexual Orientation Not on file documented as of this encounter Plan of Treatment Not on file documented as of this encounter Procedures Procedure Name Priority Date/Time Associated Diagnosis Comments LIPID PROFILE Routine 05/10/2019 documented in this encounter Results * LIPID PROFILE (05/10/2019) Triglycerides 80 mg/dL [facility] Cholesterol 139 mg/dL [facility] LDL Calculated 61 mg/dL [facility] HDL 62 [facility] Plasma us Historical Provider CHEMISTRY ORDERABLES Final R esult [facility] [address] [place] [address], [facility] documented in this encounter Visit Diagnoses Not on filedocumented in this encounter Care Teams Vocational Education Teacher Relationship Specialty Start Date End Date Darren Perez MD [address] [place] [address] PCP - General 02/19/08 03/13/24 Roopa London [address] [place] [id number] PCP - General Nurse Practitioner 03/14/24 Amara Monet NP [address] [place] [address] Oncology Nurse Navigator Nurse Practitioner 08/22/19 07/20/23 Son Fraser MD [address] [place] [address] Critical Care Medicine 08/22/19 Lamberto Rice MD [facility] [place] [address] Otolaryngology 10/27/21 Kathy Deluan MD [address] [place], [place] [phone] (Work) Consulting Physician Female Pelvic Medicine and Reconstructive Surgery 08/15/22 documented as of this encounter
--- OUTSIDE RECORDS SUMMARY | 2025-04-18 15:08 | XMS_ITS | Encounter Summary ---
Author Organization [facility] Address [address] [place] [address] Care Team Providers Care Weather Forecaster Name Role Phone Darren Perez MD Primary Care Provider [phone] Amara Monet NP Unavailable Unavailabl e Son Fraser MD Unavailable [phone] Lamberto Rice MD Unavailable [phone] Kathy Deluna MD Unavailable [phone] Roopa London Primary Care Provider [phone] Reason for Visit * Reason Onset Date Comments Other 03/07/2020 SAMPLE Encounter Details Date Type Department Care Team (Late st Contact Info) Description 03/07/2020 Telephone [facility] [address] [address] Rex Gross MD [address] [place] [address]. [facility] [address] [place], [place] [address] Other (SAMPLE) Social History Tobacco Use Types Packs/Day Years Used Date Smoking Tobacco: Every Day Cigarettes 1 52.7 Started: 08/08/1972 Smokeless Tobacco: Never Alcohol Use Standard Drinks/Week Comments No 0 (1 standard drink = 0.6 oz pur e alcohol) Comments No Sex and Gender Information Value Date Recorded Sex Assigned at Not on file Legal Sex Female 2:24 PM EST Gender Identity Not on file Sexual Orientation Not on file COVID-19 Exposure Response Date Recorded In the last month, have you been in contact with someone who was confirmed or suspected to have Coronavirus / COVID-19? No / Unsure 02/28/2020 10:08 AM EDT documented as of this encounter Miscellaneous Notes * Telephone Encounter - Sandy Good - 03/07/2020 2:57 PM EDT JAQUELINE LOT#:[id number] EXP:02/25 QTY:1 DATE: 02/28/2020 documented in this encounter Plan of Treatment Not on file documented as of this encounter Visit Diagnoses Not on filedocumented in this encounter Care Teams Weather Forecaster Relationship Specialty Start Date End Date Darren Perez MD [address] [place] [id number] PCP - General 02/19/08 03/13/24 Roopa London [address] [place] [address] PCP - General Nurse Practitioner 03/14/24 Amara Monet NP [address] [place] [address] Oncology Nurse Navigator Nurse Practitioner 08/22/19 07/20/23 Son Fraser MD [address] [place] [address] Critical Care Medicine 08/22/19 Lamberto Rice MD [address] [place] [address] Otolaryngology 10/27/21 Kathy Deluna MD [address] [place] [address] Consulting Physician Female Pelvic Medicine and Reconstructive Surgery 08/15/22 documented as of this encounter
--- OUTSIDE RECORDS SUMMARY | 2025-04-18 15:08 | XMS_ITS | Encounter Summary ---
Author Organization [facility] Address [facility] [place] [address] Care Team Providers Care Grain Handler Name Role Phone Darren Perez MD Primary Care Provider [phone] Amara Monet NP Unavailable Unavailabl e Son Fraser MD Unavailable [phone] Lamberto Rice MD Unavailable [phone] Kathy Deluna MD Unavailable [phone] Roopa London Primary Care Provider [phone] Encounter Details Date Type Department Care Team (Late st Contact Info) Description 02/28/2018 Orders Only [facility] [address] [facility] [address] [place] [id number] Son Fraser MD [address] [facility] [place] [address] SOB (shortness of breath) (Primary Dx) Social History Tobacco Use Types Packs/Day Years [...] on file documented as of this encounter Results * 6 MINUTE WALK TEST (03/09/2018 2:30 PM EDT) Narrative [facility] - 03/09/2018 2:30 PM EDT Parminder Dick MD 03/09/2018 10:04 PM 6 Minute Walk Test Interpretation Patient Name: Ruby Raza : 1945 Date: 03/09/2018 A 6 Minute Walk Test was performed in accordance with the ATS Guidelines (Am J Respir Crit Care Med 2002; 166:111-117) at [facility]. The test was performed on room air. The baseline SpO2 while breathing room air was 96%. The patient did complete the 6 minute walk. During the study, the patient walked a total distance of 1340 feet. The minimal recorded SpO2 was 93%. Oximetry with 6 Minute Walk Test shows no desaturation with submaximal exercise. Comments: [facility] Interpreting Physician: Parminder Dick MD Date: 03/09/2018 Son Fraser MD [facility] PFT Fin al Result [facility] [address] [place], [place] [address] documented in this encounter Visit Diagnoses Diagnosis SOB (shortness of breath)- Primary Shortness of breath SOB (shortness of breath) Shortness of breath documented in this encounter Care Teams Grain Handler Relationship Specialty Start Date End Date Darren Perez MD [address] [place] [address] PCP - General 02/19/08 03/13/24 Roopa London [address] [place] [address] PCP - General Nurse Practitioner 03/14/24 Amara Monet NP [address] [place] [address] Oncology Nurse Navigator Nurse Practitioner 08/22/19 07/20/23 Son Fraser MD [address] [place] [address] Critical Care Medicine 08/22/19 Lamberto Rice MD [address] [place] [address] Otolaryngology 10/27/21 Kathy Deluna MD [address] [place] [address] Consulting Physician Female Pelvic Medicine and Reconstructive Surgery 08/15/22 documented as of this encounter
--- OUTSIDE RECORDS SUMMARY | 2025-04-18 15:08 | XMS_ITS | Clinical Summary ---
Author Organization [facility] Address [address] [place] [address] Phone Care Team Providers Care Radio Station Manager Name Role Phone Brandan ULRICH, Gene Nichole [phone] Conditions or Problems Problem Name Problem Code Onset Date Status Entry Date Provider Comment Standard Description Annotate LUMBAR DEGENERATIVE DISC, L1-L5 M51.36 (ICD-10-CM ) 09/20 Active 09/20 Carin Holguin MA Other intervertebral disc degeneration, lumbar region ARTHROPATHY OF LUMBAR FACET JOINT 359435839 (SNOMED CT) 09/20 Active 09/20 Carin Holguin MA Arthropathy of lumbar facet joint LUMBAR SPONDYLOSIS, L1-L5 M47.816 (ICD-10-CM ) 09/20 Active 09/20 Carin Holguin MA Spondylosis without myelopathy or radiculopathy, lumbar region LUMBAR STENOSIS 75471994 (SNOMED CT) 11/02 Active 11/02 Zehra Carter MA Spinal stenosis of lumbar region SYNOVIAL CYST 135211847 (SNOMED CT) 01/12 Active 01/12 James Posadas ANNUAL GREENHOUSE MANAGER Synovial cyst SPINAL STENOSIS 40277431 (SNOMED CT) 01/12 Active 01/12 James Posadas ANNUAL GREENHOUSE MANAGER Spinal stenosis FOLLOW-UP EXAMINATION FOLLOWING OTHER SURGERY Z09 (ICD-10-CM ) 01/12 Active 01/12 Yvette Main MA Encounter for follow-up examination after completed treatment for conditions other than malignant neoplasm Take Note of DIVERTICULOSI S, COLON 966073142 (SNOMED CT) 12/11 Active 12/11 Tia Samuels MA Diverticular disease of colon Take Note of RESTLESS LEG SYNDROME 33209943 (SNOMED CT) 12/11 Active 12/11 Tia Samuels MA Restless legs Take Note of HYPERTRIGLYCE RIDEMIA 526986472 (SNOMED CT) 12/11 Active 12/11 Tia Samuels MA Hypertriglyceride ambreen Take Note of INSOMNIA 503041949 (SNOMED CT) 12/11 Active 12/11 Tia Samuels MA Insomnia Take Note of HYPERCHOLESTE ROLEMIA 53083493 (SNOMED CT) 12/11 Active 12/11 Tia Samuels MA Hypercholesterolemani crook Medications Medication Instructions Start Date Stop Date Generic Name NDC Provider GLUCOSAMINE CAPSULE Non-[place] GLUCOSAMINE CAPSULE Carin Holguin MA CHLORHEXIDINE GLUCONATE 2 % EXTERNAL LIQUID scrub back morning of surgery CHLORHEXIDINE GLUCONATE 2 % EXTERNAL LIQUID Carin Holguin MA Fish Oil (omega 7-wkt-bkc-fish oil) 300-1,000 mg capsule,delayed release(DR/EC) -[place] omega 2-xgn-pch-fish oil 99170735657 Carin Holguin MA MELATONIN 3 MG TABS [facility] melatonin 35090770195 Carin Holguin MA VICODIN 5-500 MG TABS 1 by mouth four times a day as needed VICODIN 5-500 MG TABS Carin Holguin MA CALCIUM + D TABS Non-[place] CALCIUM + D TABS Carin Holguin MA REQUIP 0.5 MG ORAL TABLET -[place] REQUIP 0.5 MG ORAL TABLET Carin Holguin MA NAPROXEN TABS [facility] NAPROXEN TABS Carin Holguin MA PREMARIN 0.625 MG TABS [facility] conjugated estrogens 87994571854 Carin Holguin MA ZOCOR 40 MG TABS Non-[place] simvastatin 46609701111 Carin Holguin MA ROSUVASTATIN CALCIUM 40 MG TABS rosuvastatin 79692381233 Carin Holguin MA PANTOPRAZOLE SODIUM 40 MG TBEC pantoprazole 23731038754 Carin Ezio NANDO POTASSIUM CHLORIDE ER 10 MEQ CR-TABS potassium chloride 81639925014 Carin Ezio COLLIER TRIAMTERENE-HCTZ 37.5-25 MG TABS TAKE 1 TABLET BY MOUTH DAILY triamterene-hydr ochlorothiazid 74407203069 Carni Ezio NANDO ALENDRONATE SODIUM 70 MG TABS alendronate 41201284556 Carin Ezio COLLIER IPRATROPIUM-ALBU TEROL 0.5-2.5 (3) MG/3ML SOLN ipratropium-albu terol 26103214099 Carin Eizo NANDO LOSARTAN POTASSIUM 50 MG TABS losartan 81535815156 Carin Ezio COLLIER ROPINIROLE HCL 1 MG TABS ropinirole 11999257938 Carin Ezio NANDO VICODIN 5-500 MG TABS 1 po qid prn pain HYDROCODONE-ACET AMINOPHEN 88251678076 James Posadas ANNUAL GREENHOUSE MANAGER GLUCOSAMINE CAPS [facility] GLUCOSAMINE SULFATE CAPS 83273121296 Tia Samuels MA FISH OIL CAPS -[place] OMEGA-3 FATTY ACIDS CAPS 24323059797 Tia Samuels MA MELATONIN TABS [facility] MELATONIN-PYRIDO XINE TABS 67272683140 Tia Samuels MA CALCIUM + D TABS [facility] CALCIUM-VITAMIN D TABS 02668754550 Tia Samuels MA REQUIP 0.5 MG ORAL TABLET -[place] ROPINIROLE HCL 26536468770 Tia Samuels MA PREMARIN 0.625 MG TABS -[place] ESTROGENS CONJUGATED 74691086287 iTa Samuels MA NAPROXEN TABS [facility] NAPROXEN TABS 12269693392 Tia Samuels MA ZOCOR 40 MG TABS [facility] SIMVASTATIN 70376176135 Tia Samuels MA CHLORHEXIDINE GLUCONATE 2 % EXTERNAL LIQUID scrub back morning of surgery Chlorhexidine Gluconate 85057302527 Nahun Hadley MD Medications Administered No information available. Allergies, Adverse Reactions, Alerts Allergy Name Reaction Description Start Date Severity Statu s Provider LIPITOR Malinda Samuels MA TETANUS Malinda Samuels MA AUGMENTIN Malinda Samuels MA Results Date Name Value Unit Range Flag Description Lab Report: Auto Diff, BMP, CBC MPV 7.8 fL 7.0-12.0 Platelet edith n volume [Entitic volume] in Blood by Priyanka PLATELET CNT 370 10*3/uL 150-400 platelet count RDW 14.1 % 11.5-14.5 Erythrocyte distribution width [Ratio] by Automated count MCHC RBC 33.4 g/dL 33.0-36.0 mean corpu scular hemoglobin concentration, RBC MCH 31.6 pg 27.0-33.2 MCH [Entiti c mass] by Automated count MCV 94.6 fL 80.0-95.8 MCV [Entiti c volume] by Automated count HCT 47.2 % 36.0-45.9 H Hematocrit [Volume Fraction] of Blood by Automated count HGB 15.7 g/dL 12.0-15.7 Hemoglobin [Mass/volume] in Blood RBC _ 4.99 10^6/MICROLI 10*6/uL 4.00-5.10 erythrocyte coun t, whole blood WBC CT BLOOD 11.8 10*3/uL 4.0-11.0 H leukocy te count, blood GFR >^60 mL/min Glomerular fi ltration rate/1.73 sq M.predicted among non-blacks [Volume Rate/Area] in Serum, Plasma or Blood by Creatinine-based formula (MDRD) GFRAA >^60 mL/min Glomerular Fi ltration rate CREATININE 0.7 mg/dL 0.6-1.0 Creatinine [Mass/volume] in Serum or Plasma BUN 14 mg/dL 7-19 Urea nitrogen [Mass/volume] in Serum or Plasma GLUCOSE SER 87 mg/dL 70-100 Glucose [ Mass/volume] in Serum or Plasma CALCIUM 10.4 mg/dL 8.6-10.3 H Calcium [Moles/volume] in Serum or Plasma CO2 PLSM/SER 29 MMOL/L meq/L 22-31 carbon dioxide, serum or plasma CL SERUM 103 MMOL/L meq/L 98-108 Chloride [Moles/volume] in Serum or Plasma K SERUM 5.3 MMOL/L meq/L 3.5-5.0 H Potassium [Moles/volume] in Serum or Plasma NA 140 MMOL/L meq/L 135-143 Sodium [Mo les/volume] in Serum or Plasma ABSOLUTE BAS 0.1 10*3/uL 0.0-0.2 Basophil s [#/volume] in Blood EOS ABSLT 0.1 10*3/uL 0.1-0.5 Eosinophils [#/volume] in Blood ABSOLUTE MON 0.6 10*3/uL 0.0-1.3 Monocyte s [#/volume] in Blood ABS LYMPHOCY 3.9 10*3/uL 1.0-4.8 Absolute Lymphocytes ABS NEUTROPH 7.1 10*3/uL 1.8-7.7 Neutroph ils [#/volume] in Blood BASOPHIL % 0.7 % 0.0-2.0 Basophils/ 100 leukocytes in Blood by Manual count % EOS AUTO 1.2 % 0.0-6.0 Eosinophil s/100 leukocytes in Blood by Automated count MONOCYTE % 5.0 % 4.0-12.0 Monocytes /100 leukocytes in Blood by Automated count LYMPHS % 32.7 % 17.0-46.0 Lymphocyte s/100 leukocytes in Blood by Automated count PMN % 60.4 % 40.0-70.0 Neutrophils /100 leukocytes in Blood by Automated count Plan of Care Type Date Detail Pending order X-Ray Lumbar AP Lateral & Flexion/Extension Pending order Radiofrequency A blation (RFA) Pending order Medial Branch Bl ock (MBB) Pending order PT Order Procedures Code Procedure Name Date Entry Date [facility]-[id number] Pneumonia Vaccine Previously Received 30/07/13 [id number] Flu Shot Previously Received [id number] Medications Documented [facility]-[id number] Pneumonia Vaccine Previously Received 28/10/27 Vital Signs Date Name Value Unit Description Height 62 [in_us] height E&M BMI (Body Mass Index) 24.51 kg/m2 Bod y Mass Index (Ratio) BP Diastolic 78 mm[Hg] blood pressu re, diastolic BP Systolic 120 mm[Hg] blood pressur e, systolic Weight Measured 134 [lb_av] weight E& M Weight Measured 134 [lb_av] weight E& M Immunizations No information available. Advance Directives No information available.
--- OUTSIDE RECORDS SUMMARY | 2025-04-18 15:08 | XMS_ITS | Encounter Summary ---
Author Organization [facility] Address [address] [place] [address] Care Team Providers Care Gold Assayer Name Role Phone Darren Perez MD Primary Care Provider [phone] Amara Monet NP Unavailable Unavailabl e Son Fraser MD Unavailable [phone] Lamberto Rice MD Unavailable [phone] Kathy Deluna MD Unavailable [phone] Roopa London Primary Care Provider [phone] Encounter Details Date Type Department Care Team (Latest Contact Info) Description 09/20/2018 Preop Surgical Orders [facility] [address] [place] [address] Rd. 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); Midline cystocele; Rectocele; Female stress incontinence Social History Tobacco Use Types Packs/Day Years [...] documented as of this encounter Results * (ABNORMAL) CBC (COMPLETE BLOOD COUNT) (09/26/2018 2:13 PM EST) WBC 10.2 3.8 - 10.8 10*3/uL [facility] RBC 4.41 3.80 - 5.10 10*6/uL [facility] Hemoglobin 12.9 11.7 - 15.5 g/dL [facility] Hematocrit Blood 38.9 35.0 - 45.0 % [facility] MCV 88.1 80.0 - 100.0 fL [facility] MCH 29.3 27.0 - 33.0 pg [facility] MCHC 33.2 32.0 - 36.0 g/dL [facility] RDW 15.4(H) 11.0 - 15.0 % [facility] Platelets 362 140 - 400 10*3/uL [facility] MPV 7.3(L) 7.5 - 11.5 fL [facility] Whole Blood (Blood) 09/26/2018 2:13 PM EST 09/26/2018 5:58 PM EST us Kathy Deluna MD HEMATOLOGY ORDERABLES Final Re sult [facility] [address] documented in this encounter Visit Diagnoses Diagnosis Prolapse of vaginal vault after hysterectomy- Primary Midline cystocele Cystocele, midline Rectocele Female stress incontinence documented in this encounter Care Teams Gold Assayer Relationship Specialty Start Date End Date Darren Perez MD [address] [place] [address] PCP - General 02/19/08 03/13/24 Roopa London [address] [place] [address] PCP - General Nurse Practitioner 03/14/24 Amara Monet NP [address] [place] [address] Oncology Nurse Navigator Nurse Practitioner 08/22/19 07/20/23 Son Fraser MD [address] [place] [address] Critical Care Medicine 08/22/19 Lamberto Rice MD [address] [place] [address] Otolaryngology 10/27/21 Kathy Deluna MD [address] [place] [address] Consulting Physician Female Pelvic Medicine and Reconstructive Surgery 08/15/22 documented as of this encounter
--- OUTSIDE RECORDS SUMMARY | 2025-04-18 15:08 | XMS_ITS | Encounter Summary ---
Author Organization [facility] Address [address] [place] [address] Care Team Providers Care Arranger Assembler Name Role Phone Darren Perez MD Primary Care Provider [phone] Amara Monet NP Unavailable Unavailabl e Son Fraser MD Unavailable [phone] Lamberto Rice MD Unavailable [phone] Kathy Deluna MD Unavailable [phone] Roopa London Primary Care Provider [phone] Encounter Details Date Type Department Care Team (Latest Contact Info) Description 01/24/2019 Preop Surgical Orders [facility] Physicians - Urogynecology, [place] [address] [place] [address] Rd. 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 [place] [address] PCP - General 02/19/08 03/13/24 Roopa London [address] [place] [address] PCP - General Nurse Practitioner 03/14/24 Amara Monet NP [address] [place] [address] Oncology Nurse Navigator Nurse Practitioner 08/22/19 07/20/23 Son Fraser MD [address] [place] [address] Critical Care Medicine 08/22/19 Lamberto Rice MD [address] [place], [place] [address] Otolaryngology 10/27/21 [place] [address] [place] [address] Consulting Physician Female Pelvic Medicine and Reconstructive Surgery 08/15/22 documented as of this encounter
--- OUTSIDE RECORDS SUMMARY | 2025-04-18 15:08 | XMS_ITS | Encounter Summary ---
Author Organization [facility] Address [facility] [place] [address] Care Team Providers Care Resaw Tailer Name Role Phone Darren Perez MD Primary Care Provider [phone] Son Fraser MD Unavailable [phone] Lamberto Rice MD Unavailable [phone] Kathy Deluna MD Unavailable [phone] Roopa London Primary Care Provider [phone] Reason for Visit * Reason Onset Date Comments Other 03/07/2024 Pt needs to get appr. Encounter Details Date Type Department Care Team (Late st Contact Info) Description 03/07/2024 Telephone [facility] Physicians - Heart & Vascular, [address] [place] [address] Tanvir Velazquez MD [address] [facility] [address] [place] [address] Other (Pt needs to get appr.) Social History Tobacco Use Types Packs/Day Years [...] on file documented as of this encounter Miscellaneous Notes * Telephone Encounter - Tia Guillermo - 03/07/2024 12:30 PM EDT Pt called and stated that she needs to get re-established care with Dr. Velazquez. Pt had stress test yesterday and the results came abnormal. Pt needs to get appt as soon as possible. [phone] documented in this encounter Plan of Treatment Not on file documented as of this encounter Visit Diagnoses Not on filedocumented in this encounter Care Teams Resaw Tailer Relationship Specialty Start Date End Date Darren Perez MD [address] [place] [address] PCP - General 02/19/08 03/13/24 Roopa London [address] [place] [address] PCP - General Nurse Practitioner 03/14/24 Son Fraser MD [address] [place] [address] Critical Care Medicine 08/22/19 Lamberto Rice MD [address] [place] [address] Otolaryngology 10/27/21 Kathy Deluna MD [address] [place] [id number] Consulting Physician Female Pelvic Medicine and Reconstructive Surgery 08/15/22 documented as of this encounter
--- OUTSIDE RECORDS SUMMARY | 2025-04-18 15:08 | XMS_ITS | Encounter Summary ---
Author Organization [facility] Address [address] [place] [address] Care Team Providers Care Golf Course Mechanic Name Role Phone Darren Perez MD Primary Care Provider [phone] Amara Monet NP Unavailable Unavailabl e Son Fraser MD Unavailable [phone] Lamberto Rice MD Unavailable [phone] Kathy Deluna MD Unavailable [phone] Roopa London Primary Care Provider [phone] Encounter Details Date Type Department Care Team (Late st Contact Info) Description 09/29/2018 Abstract [facility] Physicians - Spine Surgery, [place] [address] [place] [address] Ambulatory, Back End Developer Social History Tobacco Use Types Packs/Day Years [...] on filedocumented in this encounter Care Teams Golf Course Mechanic Relationship Specialty Start Date End Date Darren Perez MD [address] [place] [address] PCP - General 02/19/08 03/13/24 Roopa London [address] [place] [address] PCP - General Nurse Practitioner 03/14/24 Amara Monet, DIRECTOR TELECOMMUNICATIONS [address] [place] [address] Oncology Nurse Navigator Nurse Practitioner 08/22/19 07/20/23 Son Fraser MD [address] [place] [address] Critical Care Medicine 08/22/19 Lamberto Rice MD [address] [place] [address] Otolaryngology 10/27/21 Kathy Deluna MD [address] [place] [address] Consulting Physician Female Pelvic Medicine and Reconstructive Surgery 08/15/22 documented as of this encounter
--- OUTSIDE RECORDS SUMMARY | 2025-04-18 15:08 | XMS_ITS | Clinical Summary ---
Author Organization [facility] Address [address] [place] [address] Phone Care Team Providers Care Gis Database Administrator Name Role Phone Pat Perez Primary Care Provider [phone] Allergies Active Allergy Reactions Criticality Noted Date Comments Amoxicillin-Pot Clavulanate Rash 12/25/19 11 Atorvastatin Hives 12/24/2010 Tetanus Vaccines And Toxoid Swelling 12/25/19 11 Medications estrogens, conjugated, (PREMARIN) 0.625 mg Oral Tablet Take by mouth daily. Active naproxen (NAPROSYN) 500 mg tablet Take by mouth 2 times daily. Active rOPINIRole (REQUIP) 0.5 mg Oral Tablet Take 1 mg by mouth 5 times daily. Active CALCIUM CARBONATE/VITAMI N D3 (CALCIUM 500 + D, D3, ORAL) Take 1,000 mg by mouth daily. Active FLUTICASONE PROPIONATE (FLONASE NASL) 1 Squirt by Nasal route 2 times daily. Reported on 12/17/2016 Active loratadine (CLARITIN) 10 mg tablet Take 10 mg by mouth daily. Active pantoprazole (PROTONIX) 40 mg Oral Tablet, Delayed Release (E.C.) Take by mouth daily. Active triamterene-hydr ochlorothiazide (MAXZIDE-25) 37.5-25 mg Oral Tablet Take 1 Tab by mouth daily. Active umeclidinium-claudia anterol 62.5-25 mcg/actuation Inhl Disk with DeviceIndication s:one puff daily Inhale into the lungs. Indications: one puff daily Active fUROsemide (LASIX) 20 mg Oral Tablet Take 20 mg by mouth. Active rosuvastatin calcium (CRESTOR ORAL) Take 40 mg by mouth. Active tamoxifen (NOLVADEX) 10 mg Oral TabletIndication s:Atypical ductal hyperplasia of breast Take 1 Tab by mouth daily. 90 Tab 3 0 Active Additional Information Patient not taking.Reason: Therapy Completed, Reported on 07/30/2022 fluticasone-umec lidin-vilanter (TRELEGY ELLIPTA) 100-62.5-25 mcg Inhl Disk with Device Inhale 1 Puff into the lungs daily at 0900. Active alendronate (FOSAMAX) 70 mg Oral Tablet 2 Active potassium chloride (KLOR-CON) 10 mEq Oral Tablet Sustained Release 2 Active senna-docusate (SENOKOT-S) 8.6-50 mg Oral Tablet Take 1 Tablet by mouth daily. 9 Active aspirin 81 mg Oral Tablet, Delayed Release (E.C.) Take 81 mg by mouth daily. 8 Active losartan (COZAAR) 50 mg Oral Tablet Take by mouth daily. Active trospium (SANCTURA) 20 mg Oral Tablet Take 20 mg by mouth 2 times daily. Active multivitamin with minerals (HAIR,SKIN AND NAILS ORAL) Take by mouth daily. Active oxyCODONE (ROXICODONE) 5 mg Oral Tablet Take 1 Tablet by mouth every 4 hours as needed for Major Surgery/Trauma (G89.18). 15 Tablet 3 Active Additional Information Patient not taking.Reason: Therapy Completed, Reported on 08/23/2022 oxyCODONE (ROXICODONE) 5 mg Oral Tablet Take 1 Tablet by mouth every 4 hours as needed for Major Surgery/Trauma (G89.18). 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 Surgical History Surgery Date Site/Laterality Comments HYSTERECTOMY KNEE SURGERY tumor excision SINUS SURGERY CHOLECYSTECTOMY EYE SURGERY BIOLand RK BACK SURGERY BREAST SURGERY cyst right left breast lumpectomy BREAST BIOPSY 12/17/2016 Right Needle loc of right breast BREAST LUMPECTOMY 12/17/2016 Breast/Right RIGHT BREAST NEEDLE LOCALIZED LUMPECTOMY ; Surgeon: Jemima Torres MD; Location: [facility] MAIN OR; Service: General INGUINAL HERNIA REPAIR 08/09/2022 Abdomen/Bilateral Robotic bilateral inguinal hernia repair with mesh; Surgeon: Yoana Odell MD; Location: [facility] MAIN OR; Service: General Medical devices from this surgery are in the Medical Devices section. Medical History Medical History Date Comments Bronchitis chronic Shortness of breath Hyperlipidemia Diverticulosis Arthritis Headache(784.0) Syncope and collapse Restless leg [place] (dyspnea on exertion) COPD (chronic obstructive pulmonary disease) (HC C) Hypertension Heartburn Prolapse of female pelvic organs 10/09/2018 Bladder problem Family History Medical History Relation Name Comments Anesth Problems Neg Hx Social History Tobacco Use Types Packs/Day Years Used Date Smoking Tobacco: Every Day Cigarettes 1 50 Smokeless Tobacco: Never Tobacco Cessation:Ready to Q uit: Not Asked; Counseling Given: Not Answered Comments:refused information Alcohol Use Standard Drinks/Week Comments No 0 (1 standard drink = 0.6 oz pur e alcohol) Comments No Sex and Gender Information Value Date Recorded Sex Assigned at Not on file Legal Sex Female 8:16 PM EDT Gender Identity Not on file Sexual Orientation Not on file Obstetrics History Para Term AB IAB SAB Ectopic Multiple Livin g Live Births 0 Last Filed Vital Signs Vital Sign Reading Time Taken Comments Blood Pressure 130/82 08/23/2022 10:21 AM EST Pulse 73 08/23/2022 10:21 AM EST Temperature 36.3 C (97.3 F) 08/23/2022 10:21 AM EST Respiratory Rate 17 08/23/2022 10:2 1 AM EST Oxygen Saturation 96% 08/09/2022 12: 30 PM EST Inhaled Oxygen Concentration - - Weight 62.5 kg (137 lb 12.8 oz) 023 10:21 AM EST Height 154.9 cm (5' 1 ) 08/23/2022 10:2 1 AM EST Body Mass Index 26.04 08/23/2022 10:21 AM EST Plan of Treatment Health Maintenance Due Date Last Done Comments Wellness Exam Medicare 1948 Hepatitis C Screening 1962 DTaP/TDaP/Td (1 - Tdap) 1963 Zoster (1 of 2) 1994 RSV or 60+ (1 - 1-dose 75+ series) 2019 Low Dose Lung Cancer Screening 01/04/2025 01/05/2024, 02/07/2020, 02/09/2019, Additional history exists COVID-19 Vaccine ( season) 2025 10/17/2020, 09/19/2020 Influenza Vaccine (#1) 2025 , 08/21/2021, 06/19/2019 Bone Density Screening Completed 09/30/2005 Pneumococcal Vaccine 50+ Completed 08/21/2021, 06/08 Hepatitis B Vaccine Aged Out No longe r eligible based on patient's age to complete this topic Meningococcal B Vaccine Aged Out No l onger eligible based on patient's age to complete this topic Goals Goal Patient Goal Type Associated Problems Recent Progress Patient-Stated? Author Breast Health Breast Health On track( 020 2:02 PM EDT) Re Hill, RN Note: Patient will be compliant with monthly Self Breast Exams and is aware of to who to contact for any unusual or concerning findings. Medical Devices Implanted Type Area Yeast Tender Device Identifier Shelf Expiration Date Model / Serial / Lot Mesh Surg Lrg 4x6in 3dmax Mid Antom Knit Contr Rt Nabsb Juana Diaz - [id number] Implanted:Qty: 1 on 08/09/2022 by Yoana Odell MD at [facility] Right: Abdomen CR BARD:DAVOL 12/03/2026 [id number] / / [id number] Mesh Surg Lrg 4x6in 3dmax Mid Antom Knit Contr Lft Nabsb Mon - [id number] Implanted:Qty: 1 on 08/09/2022 by Yoana Odell MD at [facility] Left: Abdomen CR BARD:DAVOL 12/03/2026 [id number] / / [id number] Insurance MEDICARE [place] PART A AND B FOR LIFE MEDICARE [place] PART A AND B FOR LIFE Care Teams Gis Database Administrator Relationship Specialty Start Date End Date Pat Perez [facility] [address] [place] [address] PCP - General 12/21/10
--- OUTSIDE RECORDS SUMMARY | 2025-04-18 15:09 | XMS_ITS | Clinical Summary ---
Author Organization [facility] Address [address] [place] [address] Care Team Providers Care Agricultural Scientist Name Role Phone Son Fraser MD Unavailable [phone] Lamberto Rice MD Unavailable [phone] Kathy Deluna MD Unavailable [phone] Roopa [place] Primary Care Provider [phone] Allergies Active Allergy Reactions Criticality Noted Date Comments Amoxicillin-Pot Clavulanate Rash 05/03/20 08 welts Atorvastatin Rash 05/03/2008 welts Tetanus And Diphtheria Toxoi ds, Adsorbed, Adult Swelling 06/06/2013 Medications rOPINIRole (REQUIP) 0.5 mg PO Tab Take 0.5 mg by mouth See instructions. Take up to 3 tab during the day prn and 2 at bedtime Active Calcium 500 mg PO Tab Take 500 mg by mouth 3 times daily. Active DOCOSAHEXANOIC ACID/EPA (FISH OIL PO) Take 1,200 mg by mouth 2 times daily. Active lisinopril (PRINIVIL, ZESTRIL) 2.5 mg tablet Take 2.5 mg by mouth daily. Active pantoprazole (PROTONIX) 40 mg Tablet, Delayed Release (E.C.) Take 40 mg by mouth daily. 07/08/20 16 Active triamterene-hydroc hlorothiazide (MAXZIDE-25) 37.5-25 mg per tablet Take 1 Tab by mouth daily. 07/01/20 16 Active umeclidinium-vilan terol (ANORO ELLIPTA) 62.5-25 mcg/actuation Disk with Device Take 1 Puff by inhalation daily. 3 Inhaler 3 06/10/20 17 Active aspirin 81 mg Tablet, Delayed Release (E.C.) Take 1 Tab by mouth daily. 100 Tab 12/20/19 18 Active tamoxifen (NOLVADEX) 20 mg tablet Take 20 mg by mouth daily. Active Cholecalciferol, Vitamin D3, (VITAMIN D-3) 2,000 unit Capsule Take by mouth 2 times daily. Active loratadine (CLARITIN) 10 mg tablet Take 10 mg by mouth daily. Active fluticasone (FLONASE) 50 mcg/actuation nasal spray [place] 1 [place] into nose daily. Active polyethylene glycol (GLYCOLAX) 17 gram packet Take 1 Packet by mouth 2 times daily as needed (constipation). 15 Packet 1 10/10/19 19 Active Additional Information Patient not taking.Reported on 10/27/2021 senna-docusate (SENOKOT-S) 8.6-50 mg Tablet Take 1 Tab by mouth daily. 30 Tab 1 10/10/19 19 Active rosuvastatin (CRESTOR) 40 mg Tablet Take 1 Tab by mouth every evening. 90 Tab 1 11/07/19 19 Active furosemide (LASIX) 40 mg tablet Take 1 Tab by mouth daily. 1 11/24/19 19 Active trospium (SANCTURA) 20 mg Tablet Take 1 Tab (20 mg total) by mouth 2 times daily. 60 Tab 12 08/28/19 20 Active predniSONE (DELTASONE) 10 mg tablet Take by mouth. Take 4 tablets x 3 days, Take 3 tablets x 3 days,Take 2 tablets x 3 days, Take 1 tablet x 3 days, Stop taking on day 13. 30 Tab 01/04/20 20 Active Additional Information Patient not taking.Reported on 10/27/2021 famotidine (PEPCID) 20 mg tabletIndications: Stage 1 mild COPD by GOLD classification (CMS/HCC),Hiatal hernia with GERD,COPD with asthma (CMS/HCC) Take 1 Tab (20 mg total) by mouth every evening. 30 Tab 6 02/28/20 20 Active Additional Information Patient not taking.Reported on 10/27/2021 fluticasone-umecli din-vilanter (Trelegy Ellipta) 100-62.5-25 mcg Disk with DeviceIndications: Stage 1 mild COPD by GOLD classification ([facility]),Hiatal hernia with GERD,COPD with asthma ([facility]) Take 1 Puff by inhalation daily. 1 Inhaler 6 02/28/20 20 Active Additional Information Patient not taking.Reported on 10/27/2021 ferrous sulfate 325 mg (65 mg iron) tablet Take 325 mg by mouth daily. Active Active Problems Problem Noted Date Diagnosed Date Mixed stress and urge urinary incontinence 01/24 Overview (01/24/2019): Added automatically from request for surgery [id number] Dyslipidemia 11/06/2018 Enterocele 10/09/2018 Vaginal vault prolapse after hysterectomy 2018 MARY (stress urinary incontinence, female) 2018 Pre-op exam 10/06/2018 DDD (degenerative disc disease), lumbar 10/03/19 19 Spinal stenosis, lumbar omer on, with neurogenic claudication 10/03/2018 Neural foraminal stenosis of lumbar spine 2018 Facet arthropathy, lumbar 10/03/2018 Acquired spondylolisthesis 10/03/2018 Idiopathic scoliosis and kyphoscoliosis 10/03/19 19 Prolapse of vaginal vault after hysterectomy Overview (09/20/2018): Added automatically from request for surgery [id number] Female stress incontinence 09/20/2018 Overview (09/20/2018): Added automatically from request for surgery [id number] Midline cystocele 09/20/2018 Overview (09/20/2018): Added automatically from request for surgery [id number] Rectocele 09/20/2018 Overview (09/20/2018): Added automatically from request for surgery [id number] Dyslipidemia 12/05/2017 Chest pain 07/20/2016 RLS (restless legs syndrome) 06/06/2013 Rhinitis, nonallergic, chronic 06/06/2013 SOB (shortness of breath) 12/13/2012 Edema 12/13/2012 Nicotine addiction 12/13/2012 COPD (chronic obstructive pulmonary disease) 03/2013 Family History Medical History Relation Name Comments Arthritis Mother Emphysema Mother Heart Disease Mother Heart Problems Mother High Blood Pressure Mother Other Mother Arthritis Sister COPD Sister Heart Problems Sister High Blood Pressure Sister High Cholesterol Sister Thyroid Disease Sister Anesthesia Complications Neg Hx Relation Name Status Comments Father Mother Sister Social History Tobacco Use Types Packs/Day Years Used Date Smoking Tobacco: Every Day Cigarettes 1 52.7 Started: 08/08/1972 Smokeless Tobacco: Never Tobacco Cessation:Ready to Q uit: Yes; Counseling Given: Yes Alcohol Use Standard Drinks/Week Comments No 0 (1 standard drink = 0.6 oz pur e alcohol) Comments No Sex and Gender Information Value Date Recorded Sex Assigned at Not on file Legal Sex Female 2:24 PM EST Gender Identity Not on file Sexual Orientation Not on file Last Filed Vital Signs Vital Sign Reading Time Taken Comments Blood Pressure 140/48 09/13/2023 4:00 PM EST Pulse 102 09/13/2023 4:00 PM EST Temperature 37.6 C (99.7 F) 09/13/2023 4:00 PM EST Respiratory Rate 18 09/13/2023 4:00 PM EST Oxygen Saturation 100% 09/13/2023 4:00 PM EST Inhaled Oxygen Concentration - - Weight 63.5 kg (140 lb) 10/27/2021 3:12 PM EDT Height 152.4 cm (5') 10/27/2021 3:12 PM EDT Body Mass Index 27.34 10/27/2021 3:12 PM EDT Plan of Treatment Health Maintenance Due Date Last Done Comments Tetanus Vaccination (Every 1 0 Years) 1962 Pneumococcal Vaccine: 50+ Ye ars (1 of 2 - PCV) 1963 Hepatitis C Virus (HCV) Screening 1965 Zoster-RZV(Shingrix) (1 of 2) 1994 Fall Risk Assessment 2009 Osteoporosis Screening 09/30/2010 09/30/2005, 1999 RSV Vaccines (1 - 1-dose 75+ series) 2019 Lipid Monitoring 05/10/2020 05/10/2019, , 12/05/2017 Advance Care Planning 08/08/2024 Depression Screening 08/08/2024 Tobacco Cessation Counseling 12/28/2024 12/29/2023, 10/26/2023 Lung Cancer Screening 01/04/2025 01/05/2024 , 02/07/2020, 02/07/2020, Additional history exists COVID-19 Vaccine (2024-2 6 season) 2025 10/17/2020, 09/19/2020 Influenza Vaccination (#1) 2025 08/21/2021 Lipid Screening Discontinued 05/10/2019, 03/08, 12/05/2017 Influenza Vaccination (Yearly) Discontinued 08/21/2021 Medical Devices Implanted Type Area Agriscience Instructor Device Identifier Shelf Expiration Date Model / Serial / Lot Slng Obtryx Ii Crv Implanted:Qty : 1 on 10/09/2018 by Kathy Deluna MD at [facility] 8 OR Suburetheral * Balanced 01/18/2020 [id number] Procedures Procedure Name Priority Date/Time Associated Diagnosis Comments CT-CHEST W/O CONTRAST Routine 01/05/2024 5:08 PM EDT SOB (shortness of breath) LIPID PROFILE Routine 05/10/2019 DXA-DEXA SCAN AXIAL SKELETON Routine 09/30/2005 10:33 AM EST from Last 3 Months or Most Recently Relevant to Health Maintenance Results * CT-CHEST W/O CONTRAST (01/05/2024 5:08 PM EDT) Anatomical Region Laterality Modality Chest Computed Tomogra phy 01/07/2024 8:42 PM EDT Impressions 01/07/2024 8:47 PM EDT IMPRESSION: 1. Mild centrilobular emphysema with subtle mosaic attenuation that likely represents air trapping. 2. Bilateral lower lobe dependent atelectasis. 3. Peribronchial thickening of mild to moderate severity is nonspecific. Etiologies would include bronchitis of infectious or inflammatory etiology, reactive airways disease. 4. Moderate hiatal hernia. Electronically signed by MD Fred Pelaez 01/07/2024 8:[address] CHEST NON CONTRAST INDICATION: Dyspnea. Unenhanced contiguous axial images were performed through the chest. Underexposure controls were utilized during the CT examination to meet ALARA standards for radiation dose reduction. No comparison. The thyroid gland demonstrates normal size and density. No evidence of axillary mass or adenopathy. No evidence of superior mediastinal mass. No evidence of paratracheal adenopathy. Pulmonary emmy demonstrate no specific abnormality. Normal diameter and configuration of thoracic aorta. Mild atherosclerotic calcifications are present. Main pulmonary arteries appear normal in size and configuration. Moderate coronary artery calcifications are redemonstrated. The heart is normal in size and configuration. Trace anterior pericardial fluid redemonstrated. Mild centrilobular emphysema identified. Subtle groundglass density in poorly defined mosaic pattern in bilateral lungs. Findings appear somewhat more pronounced in the lower lobes dependently. Curvilinear focus identified posteriorly within the right lower lobe. Right upper lobe 4 mm nodule appears stable from previous study currently seen on series 205 image #65. No pleural effusion is visualized. The airways are patent. Bilateral lower lobe and perihilar peribronchial thickening of mild to moderate severity identified. No evidence of bronchiectasis. Normal density of osseous structures. No evidence of compression deformity. No acute fracture. No osteolytic process. Moderate hiatal hernia redemonstrated. Procedure Note Fred Shahid MD - 01/07/2024 CT CHEST NON CONTRAST INDICATION: Dyspnea. Unenhanced contiguous axial images were performed through the chest.Underexposure controls were utilized during the CT examination to meetALARA standards for radiation dose reduction. No comparison. The thyroid gland demonstrates normal size and density. No evidence ofaxillary mass or adenopathy. No evidence of superior mediastinal mass. No evidence of paratrachealadenopathy. Pulmonary emmy demonstrate no specific abnormality. Normal diameter and configuration of thoracic aorta. Mild atheroscleroticcalcifications are present. Main pulmonary arteries appear normal in sizeand configuration. Moderate coronary artery calcifications are redemonstrated. The heart isnormal in size and configuration. Trace anterior pericardial fluidredemonstrated. Mild centrilobular emphysema identified. Subtle groundglass density inpoorly defined mosaic pattern in bilateral lungs. Findings appear somewhatmore pronounced in the lower lobes dependently. Curvilinear focusidentified posteriorly within the right lower lobe. Right upper lobe 4 mmnodule appears stable from previous study currently seen on series 205image #65. No pleural effusion is visualized. The airways are patent. Bilateral lower lobe and perihilar peribronchialthickening of mild to moderate severity identified. No evidence ofbronchiectasis. Normal density of osseous structures. No evidence of compressiondeformity. No acute fracture. No osteolytic process. Moderate hiatal hernia redemonstrated. IMPRESSION: 1. Mild centrilobular emphysema with subtle mosaic attenuation thatlikely represents air trapping. 2. Bilateral lower lobe dependent atelectasis. 3. Peribronchial thickening of mild to moderate severity is nonspecific.Etiologies would include bronchitis of infectious or inflammatoryetiology, reactive airways disease. 4. Moderate hiatal hernia. Electronically signed by MD Fred Shahid Bertrand Reich MD IMG CT ORDERABLES Final Result * LIPID PROFILE (05/10/2019) Triglycerides 80 mg/dL [facility] Cholesterol 139 mg/dL [facility]TE RNAL [facility] LDL Calculated 61 mg/dL [facility] E XTERNAL [facility] HDL 62 [facility] ARCHIT[facility] AL [facility] Plasma Historical Provider CHEMISTRY ORDERABLES Final R esult Performing Organization Address City/State/[facility] Co de Phone Number [facility] [address] * BETTY-DXA SCAN AXIAL SKELETON (09/30/2005 10:33 AM EST) Anatomical Region Laterality Modality Other Narrative 09/30/2005 12:43 PM EST --- ADDENDUM: 0 --- Dictated: 09/30/05 1127 09/30/05 QDR BONE DENSITOMETRY (DEXA): FINDINGS: Please see the enclosed data sheets. The T-value compares the patient's bone mineral density with the peak bone mass of young normal patients. According to the WHO (World Health Organization) criteria, patients with T- values between -1 and -2.5 are osteopenic. Patients with T-values less than -2.5 are osteoporotic. The Z-value compares the patient's bone mineral density with age and sex-matched peers. Total bone mineral density lumbar spine L1 to L4 level is 0.987 grams per sq cm. T-value is -0.5. Z-value is 0.9. Total bone mineral density left hip is 0.769 grams per sq cm. T-value is -1.4. Z-value is -0.4. IMPRESSION: 1. BONE MINERAL DENSITY LUMBAR SPINE WITHIN NORMAL LIMITS. THIS SHOWS A 4.4% DECREASE COMPARED TO THE PRIOR STUDY OF 05/24/00. 2. PATIENT OSTEOPENIC LEFT HIP. THIS SHOWS A 3.3% INCREASE IN BONE MINERAL DENSITY COMPARED TO PRIOR STUDY. /dew Procedure Note 12/12/2007 --- ADDENDUM: 0 --- Dictated: 09/30/05 1127 09/30/05 QDR BONE DENSITOMETRY (DEXA): FINDINGS: Please see the enclosed data sheets. The T-value compares the patient's bone mineral density with the peak bonemass of young normal patients. According to the WHO (World Health Organization) criteria, patients withT-values between -1 and -2.5 are osteopenic. Patients with T-values less than -2.5 are osteoporotic. The Z-value compares the patient's bone mineral density with age andsex-matched peers. Total bone mineral density lumbar spine L1 to L4 level is 0.987 grams persq cm. T-value is -0.5. Z-value is 0.9. Total bone mineral density left hip is 0.769 grams per sq cm. T-value is-1.4. Z- value is -0.4. IMPRESSION: 1. BONE MINERAL DENSITY LUMBAR SPINE WITHIN NORMAL LIMITS. THIS SHOWS A4.4% DECREASE COMPARED TO THE PRIOR STUDY OF 05/24/00. 2. PATIENT OSTEOPENIC LEFT HIP. THIS SHOWS A 3.3% INCREASE IN BONEMINERAL DENSITY COMPARED TO PRIOR STUDY. /dew us Referring Nonstaff [employer] DEXA ORDERABLES Final Result from Last 3 Months or Most Recently Relevant to Health Maintenance Insurance [employer] LIFE SUPPLEMENT MEDICARE FOR LIFE SUPPLEMENT MEDICARE MEDICARE MEDICARE FOR LIFE SUPPLEMENT MEDICARE FOR LIFE SUPPLEMENT Advance Directives For more information, please contact: [phone] * Full Code (Latest Code Status on File) Date Activated Date Inactivated Comments 10/09/2018 2:48 PM 02/06/2019 10:12 AM * Full Code Date Activated Date Inactivated Comments 12/12/2017 1:59 PM 10/09/2018 12:06 PM Care Teams Agricultural Scientist Relationship Specialty Start Date End Date Roopa [place] [address] [place] [address] PCP - General Nurse Practitioner 03/14/24 Son Fraser MD Critical Care Medicine 08/22/19 Lamberto Rice MD [address] [place] [id number] Otolaryngology 10/27/21 Kathy Deluna MD [address] [place] [address] Consulting Physician Female Pelvic Medicine and Reconstructive Surgery 08/15/22
[2025-04-18 15:43] LABS: Albumin Level 4.3 g/dl (3.5-5.0); Chloride 108 mmol/L (98-107); Sodium 140 mmol/L (136-145)
[2025-04-18 15:44] LABS: Potassium 5.0 mmoL/L (3.5-5.1)
[2025-04-18 15:46] LABS: Alanine Aminotransferase 21 U/L (12-78); Alkaline Phosphatase 69 U/L (38-126); Anion Gap 10.0 mEq/L (5-15); Aspartate Amino Transferase 36 U/L (14-36); Bilirubin,Direct 0.3 mg/dl (0.0-0.4); Bilirubin,Indirect 0.2 mg/dL (0.0-0.9); Bilirubin,Total 0.5 mg/dl (0.2-1.3); Bilirubin,Unconjugated 0.2 mg/dL (0.0-1.1); Blood Urea Nitrogen 25 mg/dl (7-17); Calcium 9.9 mg/dl (8.4-10.2); Carbon Dioxide 27 mmol/L (22.0-30.0); Cholesterol 148 mg/dl (140-200); Creatinine,Serum 1.00 mg/dl (0.52-1.04); Estimated Glomerular Filt Rate 53 ml/min (>60); GFR (African American) 65 ML/MIN (>60); Glucose 89 mg/dl (74-100); Total Protein,Serum 6.8 g/dl (6.3-8.2); Triglycerides 76 mg/dl (30-150)
[2025-04-18 15:47] LABS: HDL Cholesterol 79 mg/dl (40-60); Magnesium 1.7 mg/dl (1.6-2.3)
[2025-04-18 16:05] LABS: Free T4 (Free Thyroxine) 1.50 ng/dl (0.78-2.19)
[2025-04-18 16:17] LABS: Thyroid Stimulating Hormone 2.28 uIU/mL (0.465-4.68)
== END 2025-04-18 23:59 | disposition home or self-care (01) ==
LOC: LAB 14:53
PROVIDERS: PCP Nurse Practitioner; Visit Provider Internal Medicine
DX: I25.10 Atherosclerotic heart disease of native coronary artery without angina pectoris (principal); R94.31 Abnormal electrocardiogram [ECG] [EKG]; I10 Essential (primary) hypertension; E78.5 Hyperlipidemia, unspecified
CPT/HCPCS: 36415; 80048; 80061; 80076; 83735; 84439; 84443; 85025

== ENCOUNTER 2025-04-29 09:56 | Outpatient (CLI) | payer MEDICARE, OTHER, SELFPAY ==
--- NOTE | 2025-04-29 10:15 | CA_ITS ---
APPROVED REPORT EXAM: Comprehensive 2D, Doppler, and color-flow Echocardiogram Automatic Print Developer: Britni Clark RVT Ht: 5 ft 1 in Wt: 124lbs BSA: 1.54 BP: 120/52 mmHg Indications: LV FUNCTION,SHORTNESS OF BREATH 2D Dimensions Left Atrium 3.09 cm F: 2.7 - 3.8 LA Volume 20.90 mL RVID Base (AP4) 2.31 cm (M/F) 2.5-4.1 LA Volume Index 13.57 mL/m2 (M/F) 16-34 LVOT 2.02 cm (M/F) 1.5-2.5 EF AP4 53.20 % GL Strain -21.0 % M-Mode Dimensions RVDd 1.61 cm (0.9-2.6) LVDd 3.82 cm (3.5-5.7) Ao Diam 2.65 cm (2.0-3.7) LVDs 1.74 cm (3.5-5.7) IVSd 0.84 cm (0.6-1.1) PWd 0.57 cm (0.6-1.1) EF (Teich) 85.80% FS 54.50% EDV (Teich) 62.70 mL TAPSE 2.26 (<1.7) ESV (Teich) 8.90 mL LV Diastology E Decel Time 292 (160-240 msec) E/A Ratio 0.9 MED E' 5.7 (>= 7 cm/sec) E'/MED E' Ratio 15.67 (<= 14) LAT E' 7.5 (>= 10 cm/sec) E/LAT E' Ratio 11.91 (<= 14) Aortic Valve LVOT Max 107.0 (70-110 cm/s) MARCO Index 1.45 cm2/m2 LVOT VTI 23.81 cm AoV Peak Jose. 141.0 (50-130 cm/s) AO Peak GR. 7.80 mmHg AO Mean GR. 4.40 (<5 mmHg) AO VTI 34.3 (18-25 cm) MARCO (VTI) 2.23 (2.5-4.5 cm2) Mitral Valve MV E Max Jose. 89.0 (40-130 cm/s) MV A Velocity 95.0 (40-130 cm/s) E/A Ratio 0.94 MV Decel. Time 292 (160-240 ms) Tricuspid Valve TR P. Velocity 228.00 cm/s RAP Estimate 8.00 mmHg RVSP 28.80 mmHg Left Ventricle The left ventricle is normal size. Left ventricular systolic function is normal. The left ventricular ejection fraction is within the normal range. There is increased left ventricular wall thickness. There is normal LV segmental wall motion. The left ventricular diastolic function is normal. LVEF is 55%. Right Ventricle The right ventricle is mildly dilated. The right ventricular systolic function is normal. Atria The left atrium is mildly dilated. The right atrium is mildly dilated. There is no color Doppler evidence of interatrial shunt. Aortic Valve The aortic valve is mildly thickened. There is no hemodynamically significant aortic valvular stenosis. Trace aortic regurgitation is present. Mitral Valve The mitral valve is normal in structure. No evidence of mitral valve stenosis. Mild mitral regurgitation is present. Tricuspid Valve The tricuspid valve leaflets are thin and pliable. Mild tricuspid regurgitation. RVSP is 20-25 mmHg. Pulmonic Valve The pulmonary valve is grossly normal in structure. Trace pulmonic valve regurgitation is present. Great Vessels The aortic root is normal in size. IVC is normal in size and collapses >50% with inspiration. Pericardium There is no pericardial effusion. Other Information Study Quality: Fair Conclusion Normal biventricular systolic function. Mild RV dilation. Mild biatrial dilation. Mild MR, mild TR. Electronically signed by : Kirstin Huang MD 04/29/2025 13:15:17
--- OUTSIDE RECORDS SUMMARY | 2025-04-29 10:16 | XMS_ITS | Clinical Summary ---
Author Organization [employer] [facility] Address [address] [place] [address] Phone Care Team Providers Care Stave Log Cut Off Saw Operator Name Role Phone Unavailable Unavailable Conditions or Problems No information available. Medications No information available. Medications Administered No information available. Allergies, Adverse Reactions, Alerts No information available. Results No information available. Plan of Care No information available. Procedures No information available. Vital Signs No information available. Immunizations No information available. Advance Directives No information available.
--- OUTSIDE RECORDS SUMMARY | 2025-04-29 10:16 | XMS_ITS | Encounter Summary ---
Author Organization [facility] Address [address] [place] [address] Care Team Providers Care First Calender Worker Name Role Phone Darren Perez MD Primary Care Provider [phone] Amara Monet NP Unavailable Unavailabl e Son Fraser MD Unavailable [phone] Lamberto Rice MD Unavailable [phone] Kathy Deluna MD Unavailable [phone] Roopa London Primary Care Provider [phone] Reason for Visit * Reason Onset Date Comments Other 03/07/2020 SAMPLE Encounter Details Date Type Department Care Team (Late st Contact Info) Description 03/07/2020 Telephone [facility] [address] [address] Rex Gross MD [address] [place] [address]. [facility] [address] [place], [place] [id number] Other (SAMPLE) Social History Tobacco Use Types [...] on filedocumented in this encounter Care Teams First Calender Worker Relationship Specialty Start Date End Date Darren Perez MD [address] [place] [id number] PCP - General 02/19/08 03/13/24 Roopa London [address] [place] [address] PCP - General Nurse Practitioner 03/14/24 Amara Monet NP [address] [place] [address] Oncology Nurse Navigator Nurse Practitioner 08/22/19 07/20/23 Son Fraser MD [address] [place] [address] Critical Care Medicine 08/22/19 Lamberto Rice MD [address] [place] [address] Otolaryngology 10/27/21 Kathy Deluna MD [address] [place] [address] Consulting Physician Female Pelvic Medicine and Reconstructive Surgery 08/15/22 documented as of this encounter
--- OUTSIDE RECORDS SUMMARY | 2025-04-29 10:16 | XMS_ITS | Clinical Summary ---
Author Organization [facility] Address [address] [place] [address] Phone Care Team Providers Care Head End Desizing Machine Operator Name Role Phone Brandan ULRICH, Gene Nichole Conditions or Problems Problem Name Problem Code Onset Date Status Entry Date Provider Comment Standard Description Annotate LUMBAR DEGENERATIVE DISC, L1-L5 M51.36 (ICD-10-CM ) 09/20 Active 09/20 Carin Holguin MA Other intervertebral disc degeneration, lumbar region ARTHROPATHY OF LUMBAR FACET JOINT 933784400 (SNOMED CT) 09/20 Active 09/20 Carin Holguin MA Arthropathy of lumbar facet joint LUMBAR SPONDYLOSIS, L1-L5 M47.816 (ICD-10-CM ) 09/20 Active 09/20 Carin Holguin MA Spondylosis without myelopathy or radiculopathy, lumbar region LUMBAR STENOSIS 44648907 (SNOMED CT) 11/02 Active 11/02 Zehra Carter MA Spinal stenosis of lumbar region SYNOVIAL CYST 816382519 (SNOMED CT) 01/12 Active 01/12 James Posadas [employer] MANAGER Synovial cyst SPINAL STENOSIS 93018143 (SNOMED CT) 01/12 Active 01/12 James Posadas [employer] CLUB MANAGER Spinal stenosis FOLLOW-UP EXAMINATION FOLLOWING OTHER SURGERY Z09 (ICD-10-CM ) 01/12 Active 01/12 Yvette Main MA Encounter for follow-up examination after completed treatment for conditions other than malignant neoplasm Take Note of DIVERTICULOSI S, COLON 235251653 (SNOMED CT) 12/11 Active 12/11 Tia Samuels MA Diverticular disease of colon Take Note of RESTLESS LEG SYNDROME 51027281 (SNOMED CT) 12/11 Active 12/11 Tia Samuels MA Restless legs Take Note of HYPERTRIGLYCE RIDEMIA 171351341 (SNOMED CT) 12/11 Active 12/11 Tia Samuels MA Hypertriglyceride ambreen Take Note of INSOMNIA 588725743 (SNOMED CT) 12/11 Active 12/11 Tia Samuels MA Insomnia Take Note of HYPERCHOLESTE ROLEMIA 19333018 (SNOMED CT) 12/11 Active 12/11 Tia Samuels MA Hypercholesterolemani crook Medications Medication Instructions Start Date Stop Date Generic Name NDC Provider GLUCOSAMINE CAPSULE Non-[place] GLUCOSAMINE CAPSULE Carin Holguin MA CHLORHEXIDINE GLUCONATE 2 % EXTERNAL LIQUID scrub back morning of surgery CHLORHEXIDINE GLUCONATE 2 % EXTERNAL LIQUID Carin Holguin MA Fish Oil (omega 6-wfz-ckm-fish oil) 300-1,000 mg capsule,delayed release(DR/EC) -[place] omega 7-loo-fez-fish oil 75290248457 Carin Holguin MA MELATONIN [address] [facility] melatonin 03026448148 Carin Holguin MA VICODIN 5-500 MG TABS 1 by mouth four times a day as needed VICODIN 5-500 MG TABS Carin Holguin MA CALCIUM + D TABS Non-[place] CALCIUM + D TABS Carin Holguin MA REQUIP 0.5 MG ORAL TABLET -[place] REQUIP 0.5 MG ORAL TABLET Carin Holguin MA NAPROXEN TABS [facility] NAPROXEN TABS Carin Holguin MA PREMARIN 0.[address] [facility] conjugated estrogens 69990537087 Carin Holguin MA ZOCOR 40 MG TABS Non-[place] simvastatin 41934995809 Carin Holguin MA ROSUVASTATIN CALCIUM 40 MG TABS rosuvastatin 60294971354 Carin Holguin MA PANTOPRAZOLE SODIUM 40 MG TBEC pantoprazole 53508122256 Carin Ezio NANDO POTASSIUM CHLORIDE ER 10 MEQ CR-TABS potassium chloride 95276855911 Carin Ezio COLLIER TRIAMTERENE-HCTZ 37.5-25 MG TABS TAKE 1 TABLET BY MOUTH DAILY triamterene-hydr ochlorothiazid 29121829040 Carin Ezio NANDO ALENDRONATE SODIUM 70 MG TABS alendronate 52382202548 Carin Ezio COLLIER IPRATROPIUM-ALBU TEROL 0.5-2.5 (3) MG/3ML SOLN ipratropium-albu terol 08371086511 Carin Ezio NANDO LOSARTAN POTASSIUM 50 MG TABS losartan 54192820445 Carin Ezio COLLIER ROPINIROLE HCL 1 MG TABS ropinirole 15606791345 Carin Ezio NANDO VICODIN 5-500 MG TABS 1 po qid prn pain HYDROCODONE-ACET AMINOPHEN 01621728076 James Posadas [employer] MANAGER GLUCOSAMINE CAPS [facility] GLUCOSAMINE SULFATE CAPS 05100410894 Tia Samuels MA FISH OIL CAPS -[place] OMEGA-3 FATTY ACIDS CAPS 33942097257 Tia Samuels MA MELATONIN TABS [facility] MELATONIN-PYRIDO XINE TABS 97350677669 Tia Samuels MA CALCIUM + D TABS [facility] CALCIUM-VITAMIN D TABS 70609336553 Tia Samuels MA REQUIP 0.5 MG ORAL TABLET -[place] ROPINIROLE HCL 59074426482 Tia Samuels MA PREMARIN 0.625 MG TABS -[place] ESTROGENS CONJUGATED 22653548362 Tia Samuels MA NAPROXEN TABS [facility] NAPROXEN TABS 65457174528 Tia Samuels MA ZOCOR [address] [facility] SIMVASTATIN 61697029031 Tia Samuels MA CHLORHEXIDINE GLUCONATE 2 % EXTERNAL LIQUID scrub back morning of surgery Chlorhexidine Gluconate 35678227667 Nahun Hadley MD Medications Administered No information [...] Procedures Code Procedure Name Date Entry Date [facility]-[id number] Pneumonia Vaccine Previously Received 30/07/13 [id number] Flu Shot Previously Received [id number] Medications Documented [facility]-[id number] Pneumonia Vaccine Previously Received 28/10/27 Vital Signs [...]
--- OUTSIDE RECORDS SUMMARY | 2025-04-29 10:16 | XMS_ITS | Encounter Summary ---
Author Organization [facility] Address [facility] [place] [address] Care Team Providers Care Emulsification Operator Name Role Phone Darren Perez MD Primary Care Provider [phone] Amara Monet NP Unavailable Unavailabl e Son Fraser MD Unavailable [phone] Lamberto Rice MD Unavailable [phone] Kathy Deluna MD Unavailable [phone] Roopa London Primary Care Provider [phone] Encounter Details Date Type Department Care Team (Late st Contact Info) Description 05/11/2019 Abstract [facility] Physicians - Heart & Vascular, [place] [address] [place] [address] Tanvir Velazquez MD [address] [place] [address] [address] [place] [address] Social History Tobacco Use Types [...] [facility] E XTERNAL LAB HDL 62 [facility] BOX MAKER PAPERBOARD AL LAB Plasma us Historical Provider CHEMISTRY ORDERABLES Final R esult [facility] [address] [place] [address], [facility] documented in this encounter Visit Diagnoses Not on filedocumented in this encounter Care Teams Emulsification Operator Relationship Specialty Start Date End Date Darren Perez MD [address] [place] [address] PCP - General 02/19/08 03/13/24 Roopa London [address] [place] [address] PCP - General Nurse Practitioner 03/14/24 Amara Monet NP [address] [place] [address] Oncology Nurse Navigator Nurse Practitioner 08/22/19 07/20/23 Son Fraser MD [address] [place] [address] Critical Care Medicine 08/22/19 Lamberto Rice MD [facility] [place] [address] Otolaryngology 10/27/21 Kathy Deluna MD [address] [place], [place] [address] (Work) Consulting Physician Female Pelvic Medicine and Reconstructive Surgery 08/15/22 documented as of this encounter
--- OUTSIDE RECORDS SUMMARY | 2025-04-29 10:17 | XMS_ITS | Encounter Summary ---
Author Organization [facility] Address [address] [place] [address] Care Team Providers Care Automation Control Technician Name Role Phone Darren Perez MD Primary Care Provider [phone] Amara Monet NP Unavailable Unavailabl e Son Fraser MD Unavailable [phone] Lamberto Rice MD Unavailable [phone] Kathy Deluna MD Unavailable [phone] Roopa London Primary Care Provider [phone] Encounter Details Date Type Department Care Team (Latest Contact Info) Description 01/24/2019 Preop Surgical Orders [facility] Physicians - Urogynecology, [place] [id number] [place] [address] [address]. [address] [place] [address] Latonia Bobo, [address] [address] Mixed stress and urge urinary incontinence (Primary [...] (male)(female) documented in this encounter Care Teams Automation Control Technician Relationship Specialty Start Date End Date Darren Perez MD [address] [place] [address] PCP - General 02/19/08 03/13/24 Roopa London [address] [place] [address] PCP - General Nurse Practitioner 03/14/24 Amara Monet NP [address] [place] [address] Oncology Nurse Navigator Nurse Practitioner 08/22/19 07/20/23 Son Fraser MD [address] [place] [address] Critical Care Medicine 08/22/19 Lamberto Rice MD [address] [place], [place] [address] Otolaryngology 10/27/21 [place] [address] [place] [address] Consulting Physician Female Pelvic Medicine and Reconstructive Surgery 08/15/22 documented as of this encounter
--- OUTSIDE RECORDS SUMMARY | 2025-04-29 10:17 | XMS_ITS | Clinical Summary ---
Author Organization [facility] Address [address] [place] [address] Care Team Providers Care Actuary Clerk Name Role Phone Son Fraser MD Unavailable [phone] Lamberto Rice MD Unavailable [phone] Kathy Deluna MD Unavailable [phone] Roopa London Primary Care Provider [phone] Allergies Active Allergy Reactions Criticality Noted Date [...] Active fluticasone (FLONASE) 50 mcg/actuation nasal spray [place] 1 [place] into nose daily. Active polyethylene glycol (GLYCOLAX) [...] Stage 1 mild COPD by GOLD classification ([facility]),Hiatal hernia with GERD,COPD with asthma ([facility]) Take 1 Puff by inhalation daily. 1 Inhaler 6 02/28/20 20 Active Additional Information Patient not taking.Reported on 10/27/2021 ferrous sulfate 325 mg (65 mg iron) tablet Take 325 mg by mouth daily. Active Active Problems Problem Noted Date Diagnosed Date Mixed stress and urge urinary incontinence 01/24 Overview (01/24/2019): Added automatically from request for surgery [id number] Dyslipidemia 11/06/2018 Enterocele 10/09/2018 Vaginal vault prolapse [...] (09/20/2018): Added automatically from request for surgery [id number] Female stress incontinence 09/20/2018 Overview (09/20/2018): Added automatically from request for surgery [id number] Midline cystocele 09/20/2018 Overview (09/20/2018): Added automatically from request for surgery [id number] Rectocele 09/20/2018 Overview (09/20/2018): Added automatically from request for surgery [id number] Dyslipidemia 12/05/2017 Chest pain 07/20/2016 RLS (restless [...] 2019 Lipid Monitoring 05/10/2020 05/10/2019, , 12/05/2017 COVID-19 Vaccine (3 - Modern a risk series) 11/14/2020 10/17/2020, 09/19/2020 Advance Care Planning 08/08/2024 Depression Screening 08/08/2024 Tobacco Cessation Counseling 12/28/2024 12/29/2023, 10/26/2023 Lung Cancer Screening 01/04/2025 01/05/2024 , 02/07/2020, 02/07/2020, Additional history exists Influenza Vaccination (#1) 2025 08/21/2021 Lipid Screening Discontinued 05/10/2019, 03/08, 12/05/2017 Influenza Vaccination (Yearly) Discontinued 08/21/2021 Medical Devices Implanted Type Area Fisher Diving Device Identifier Shelf Expiration Date Model / Serial / Lot Slng Obtryx Ii Crv Implanted:Qty : 1 on 10/09/2018 by Kathy Deluna MD at [facility] 8 OR Suburetheral * [facility] 01/18/2020 [id number] Procedures Procedure Name Priority Date/Time Associated Diagnosis [...] * LIPID PROFILE (05/10/2019) Triglycerides 80 mg/dL TC EX TERNAL LAB Cholesterol 139 mg/dL [facility] EXTE RNAL LAB LDL Calculated 61 mg/dL TC E XTERNAL LAB HDL 62 TCH BUG TRIMMER AL LAB Plasma Historical Provider CHEMISTRY ORDERABLES Final R esult Performing Organization Address City/State/[facility] Co de Phone Number [facility] [address] * BETTY-DXA SCAN AXIAL SKELETON (09/30/2005 [...] Most Recently Relevant to Health Maintenance Insurance [employer] SUPPLEMENT MEDICARE FOR LIFE SUPPLEMENT MEDICARE MEDICARE MEDICARE FOR LIFE SUPPLEMENT FOR LIFE SUPPLEMENT Advance Directives For more information, please contact: [phone] * Full Code (Latest Code Status on File) Date Activated Date Inactivated Comments 10/09/2018 2:48 PM 02/06/2019 10:12 AM * Full Code Date Activated Date Inactivated Comments 12/12/2017 1:59 PM 10/09/2018 12:06 PM Care Teams Actuary Clerk Relationship Specialty Start Date End Date Roopa London [address] [place] [address] PCP - General Nurse Practitioner 03/14/24 Son Fraser MD Critical Care Medicine 08/22/19 Lamberto Rice MD [address] [place] [address] Otolaryngology 10/27/21 Kathy Deluna MD [address] [place] [address] Consulting Physician Female Pelvic Medicine and Reconstructive Surgery 08/15/22
--- OUTSIDE RECORDS SUMMARY | 2025-04-29 10:17 | XMS_ITS | Encounter Summary ---
Author Organization [facility] Address [address] [place] [address] Care Team Providers Care Surgery Teacher Name Role Phone Darren Perez MD Primary Care Provider [phone] Amara Monet NP Unavailable Unavailabl e Son Fraser MD Unavailable [phone] Lamberto Rice MD Unavailable [phone] Kathy Deluna MD Unavailable [phone] Roopa London Primary Care Provider [phone] Encounter Details Date Type Department Care Team (Latest Contact Info) Description 09/20/2018 Preop Surgical Orders [facility] [address] [place] [address] [address] [place] [address] Jonelle Joshi, RN [address] [place] [address] Prolapse of vaginal vault after hysterectomy (Primary [...] Deluna MD HEMATOLOGY ORDERABLES Final Re sult [facility] [address] documented in this encounter Visit Diagnoses Diagnosis Prolapse of vaginal vault after hysterectomy- Primary Midline cystocele Cystocele, midline Rectocele Female stress incontinence documented in this encounter Care Teams Surgery Teacher Relationship Specialty Start Date End Date Darren Perez MD [address] [place] [address] PCP - General 02/19/08 03/13/24 Roopa London [address] [place] [address] PCP - General Nurse Practitioner 03/14/24 Amara Monet NP [address] [place] [address] Oncology Nurse Navigator Nurse Practitioner 08/22/19 07/20/23 Son Fraser MD [address] [place] [address] Critical Care Medicine 08/22/19 Lamberto Rice MD [address] [place] [address] Otolaryngology 10/27/21 Kathy Deluna MD [address] [place] [address] Consulting Physician Female Pelvic Medicine and Reconstructive Surgery 08/15/22 documented as of this encounter
--- OUTSIDE RECORDS SUMMARY | 2025-04-29 10:17 | XMS_ITS | Encounter Summary ---
Author Organization [facility] Address [address] [place] [address] Care Team Providers Care Service Line Layer Name Role Phone Darren Perez MD Primary Care Provider [phone] Amara Monet NP Unavailable Unavailabl e Son Fraser MD Unavailable [phone] Lamberto Rice MD Unavailable [phone] Kathy Deluna MD Unavailable [phone] Roopa London Primary Care Provider [phone] Encounter Details Date Type Department Care Team (Late st Contact Info) Description 09/29/2018 Abstract [facility] Physicians - Spine Surgery, [place] [address] [place] [address] Ambulatory, Ocular Care Aide Social History Tobacco Use Types Packs/Day Years [...] on filedocumented in this encounter Care Teams Service Line Layer Relationship Specialty Start Date End Date Darren Perez MD [address] [place] [address] PCP - General 02/19/08 03/13/24 Roopa London [address] [place] [address] PCP - General Nurse Practitioner 03/14/24 Amara Monet, RD MANAGER [address] [place] [address] Oncology Nurse Navigator Nurse Practitioner 08/22/19 07/20/23 Son Fraser MD [address] [place] [address] Critical Care Medicine 08/22/19 Lamberto Rice MD [address] [place] [address] Otolaryngology 10/27/21 Kathy Deluna MD [address] [place] [address] Consulting Physician Female Pelvic Medicine and Reconstructive Surgery 08/15/22 documented as of this encounter
--- OUTSIDE RECORDS SUMMARY | 2025-04-29 10:17 | XMS_ITS | Encounter Summary ---
Author Organization [facility] Address [facility] [place] [address] Care Team Providers Care Delivery Engineer Name Role Phone Darren Perez MD Primary Care Provider [phone] Amara Monet NP Unavailable Unavailabl e Son Fraser MD Unavailable [phone] Lamberto Rice MD Unavailable [phone] Kathy Deluna MD Unavailable [phone] Roopa London Primary Care Provider [phone] Encounter Details Date Type Department Care Team (Late st Contact Info) Description 02/28/2018 Orders Only [facility] [address] [facility] [address] [place] [id number] Son Fraser MD [address] [facility] [place] [address] SOB (shortness of breath) (Primary [...] WALK TEST (03/09/2018 2:30 PM EDT) Narrative [facility] - 03/09/2018 2:30 PM EDT Parminder Dick MD 03/09/2018 10:04 PM 6 Minute Walk Test Interpretation Patient Name: Ruby Raza : 1945 Date: 03/09/2018 A 6 Minute Walk Test was performed in accordance with the ATS Guidelines (Am J Respir Crit Care Med 2002; 166:111-117) at [facility]. The test was performed on room air. [...] Dick MD Date: 03/09/2018 Son Fraser MD [facility] PFT Fin al Result [facility] [address] [place], [place] [address] documented in this encounter Visit Diagnoses Diagnosis SOB (shortness of breath)- Primary Shortness of breath SOB (shortness of breath) Shortness of breath documented in this encounter Care Teams Delivery Engineer Relationship Specialty Start Date End Date Darren Perez MD [address] [place] [address] PCP - General 02/19/08 03/13/24 Roopa London [address] [place] [address] PCP - General Nurse Practitioner 03/14/24 Amara Monet NP [address] [place] [address] Oncology Nurse Navigator Nurse Practitioner 08/22/19 07/20/23 Son Fraser MD [address] [place] [address] Critical Care Medicine 08/22/19 Lamberto Rice MD [address] [place] [address] Otolaryngology 10/27/21 Kathy Deluna MD [address] [place] [address] Consulting Physician Female Pelvic Medicine and Reconstructive Surgery 08/15/22 documented as of this encounter
--- OUTSIDE RECORDS SUMMARY | 2025-04-29 10:17 | XMS_ITS | Clinical Summary ---
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 Medical Devices Implanted Type Area Cut Off Operator Scorer Device Identifier Shelf Expiration Date Model / Serial / Lot Mesh Surg Lrg 4x6in 3dmax Mid Antom Knit Contr Rt Nabsb Elbert - [id number] Implanted:Qty: 1 on 08/09/2022 by Yoana Odell MD at [facility] Right: Abdomen CR BARD:DAVOL 12/03/2026 [id number] / / [id number] Mesh Surg Lrg 4x6in 3dmax Mid Antom Knit Contr Lft Nabsb Mon - [id number] Implanted:Qty: 1 on 08/09/2022 by Yoana Odell MD at [facility] Left: Abdomen CR BARD:DAVOL 12/03/2026 [id number] / / [id number] Insurance MEDICARE [place] PART A AND B FOR LIFE [place]ICARE [place] PART A [place] B FOR LIFE Care Teams Scrum Master Relationship Specialty Start Date End Date Pat Perez [facility] [address] [place] [address] PCP - General 12/21/10
--- OUTSIDE RECORDS SUMMARY | 2025-04-29 10:17 | XMS_ITS | Encounter Summary ---
Author Organization [facility] Address [facility] [place] [address] Care Team Providers Care Tool Engineer Name Role Phone Darren Perez MD Primary Care Provider [phone] Son Fraser MD Unavailable [phone] Lamberto Rice MD Unavailable [phone] Kathy Deluna MD Unavailable [phone] Roopa London Primary Care Provider [phone] Reason for Visit * Reason Onset Date Comments Other 03/07/2024 Pt needs to get appr. Encounter Details Date Type Department Care Team (Late st Contact Info) Description 03/07/2024 Telephone [facility] - Heart & Vascular, [address] [place] [address] Tanvir Velazquez MD [address] [facility] [address] [place] [address] Other (Pt needs to get [...] to get appt as soon as possible. [phone] documented in this encounter Plan of Treatment Not on file documented as of this encounter Visit Diagnoses Not on filedocumented in this encounter Care Teams Tool Engineer Relationship Specialty Start Date End Date Darren Perez MD [address] [place] [address] PCP - General 02/19/08 03/13/24 Roopa London [address] [place] [id number] PCP - General Nurse Practitioner 03/14/24 Son Fraser MD [address] [place] [address] Critical Care Medicine 08/22/19 Lamberto Rice MD [address] [place] [address] Otolaryngology 10/27/21 Kathy Deluna MD [address] [place] [address] [id number] Consulting Physician Female Pelvic Medicine and Reconstructive Surgery 08/15/22 documented as of this encounter
== END 2025-04-29 23:59 | disposition home or self-care (01) ==
LOC: RT 09:57
PROVIDERS: PCP Nurse Practitioner; Visit Provider Internal Medicine
DX: I08.1 Rheumatic disorders of both mitral and tricuspid valves (principal); I11.9 Hypertensive heart disease without heart failure; I25.10 Atherosclerotic heart disease of native coronary artery without angina pectoris; R94.31 Abnormal electrocardiogram [ECG] [EKG]; E78.5 Hyperlipidemia, unspecified
CPT/HCPCS: 93306

== ENCOUNTER 2025-05-15 14:36 | Emergency (ER) | payer MEDICARE, OTHER, SELFPAY ==
[2025-05-15] VITALS (7 sets, daily range): BP systolic 109–146; BP diastolic 53–68; PULSE 67–73; RESP 15–20; TEMP 36.7–36.8; O2SAT 96–100; BMI 22.6
--- NOTE | 2025-05-15 14:43 | XR_ITS ---
FINAL REPORT CLINICAL HISTORY: Upper respiratory infection COMPARISON: 05/02/2024 FINDINGS: 2 views of the chest were obtained . The heart is normal in size. The mediastinum is within normal limits. The lungs are clear. There is a retrocardiac opacity containing air consistent with hiatal hernia. There is no pneumothorax. Osseous structures are unremarkable. IMPRESSION: No acute cardiopulmonary process. Reviewed, Interpreted and Dictated by Maribel Do MD Transcribed by Marylu Ojeda Authenticated and . [facility]
[2025-05-15 14:59] LABS: Coronavirus 19, PCR Not Detected (NotDetected); Influenza A, PCR Not Detected (NotDetected); Influenza B, PCR Not Detected (NotDetected)
--- NOTE | 2025-05-15 15:05 | PC.NURSE ---
Pt returns to lobby from chest x-ray
--- NOTE | 2025-05-15 16:02 | CT_ITS ---
PROCEDURE INFORMATION: Exam: CT Abdomen And Pelvis With Contrast Exam date and time: 05/15/2025 5:17 PM Age: 79 years old Clinical indication: Abdominal pain; Localized; Left lower quadrant (llq); Additional info: Llq abdominal pain, diarrhea TECHNIQUE: Imaging protocol: Computed tomography of the abdomen and pelvis with contrast. Radiation optimization: All CT scans at this facility use at least one of these dose optimization techniques: automated exposure control; mA and/or kV adjustment per patient size (includes targeted exams where dose is matched to clinical indication); or iterative reconstruction. Contrast material: ISOVUE; Contrast volume: 75 ml; Contrast route: IV; COMPARISON: CT ABDOMEN PELVIS W CON 08/28/2021 10:04 AM FINDINGS: Liver: Normal. No mass. Gallbladder and biliary ducts: There are surgical clips within the gallbladder fossa. Pancreas: Normal. No ductal dilation. Spleen: Normal. No splenomegaly. Adrenal glands: Normal. No mass. Kidneys and ureters: Normal. No hydronephrosis. Stomach and bowel: Large hiatal hernia with significant portion of the gastric body located at the lower mediastinum. Mild thickening and inflammatory changes of the sigmoid colon which can be seen with infectious or inflammatory colitis. Appendix: No evidence of appendicitis. Intraperitoneal space: Unremarkable. No free air. No significant fluid collection. 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 Moderate calcific atherosclerotic disease of the abdominal aorta without aneurysmal dilatation is present. Lymph nodes: Unremarkable. No enlarged lymph nodes. Urinary bladder: Unremarkable as visualized. Reproductive: Unremarkable as visualized. Bones/joints: Moderate loss of intervertebral disc space with degenerative changes involving L2 through S1. Soft tissues: Normal. IMPRESSION: 1. Large hiatal hernia with significant portion of the gastric body located at the lower mediastinum. 2. Mild thickening and inflammatory changes of the sigmoid colon which can be seen with infectious or inflammatory colitis.
--- NOTE | 2025-05-15 16:05 | HMH.EDGENADL ---
Discharge Plan Disposition Patient Disposition: Home, Self-Care Condition: Good Prescriptions Prescriptions: No Action multivitamin Tablet 1 tab PO DAILY aspirin 81 mg tablet,chewable 81 mg PO DAILY calcium citrate-vitamin D3 [Citracal + D Maximum] 315 mg-6.25 mcg (250 unit) tablet 1 tab PO BID cholecalciferol (vitamin D3) 125 mcg (5,000 unit) capsule 125 mcg PO DAILY Qty: 90 1RF fluticasone propionate 50 mcg/actuation spray,suspension 1 spray intranasal DAILY Qty: 48 3RF Rx Instructions: administer into each nostril Trelegy Ellipta 100-62.5-25 mcg blister with device 1 inh inhalation DAILY Qty: 3 1RF methocarbamol 750 mg tablet 750 mg PO TID PRN (Reason: muscle spasm) Qty: 90 1RF metoprolol succinate 25 mg tablet extended release 24 hr 12.5 mg PO DAILY Qty: 30 2RF ondansetron HCl 4 mg tablet 4 mg PO Q8H PRN (Reason: nausea and vomiting) Qty: 20 0RF hyoscyamine sulfate 0.125 mg tablet 0.125 mg PO QID PRN (Reason: diarrhea or abdominal cramping) Qty: 30 0RF levofloxacin 500 mg tablet 500 mg PO Q24H Qty: 10 0RF trospium 20 mg tablet 20 mg PO DAILY Qty: 90 1RF triamterene-hydrochlorothiazid 37.5-25 mg tablet 1 tab PO DAILY Qty: 90 1RF ipratropium-albuterol 0.5 mg-3 mg(2.5 mg base)/3 mL solution for nebulization See Rx Instructions .ROUTE .COMPLEX Qty: 180 12RF Dose Instruction: INHALE CONTENTS OF 1 VIAL (3 ML) EVERY 6 HOURS NEEDED FOR SHORTNESS OF BREATH OR WHEEZING Rx Instructions: INHALE CONTENTS OF 1 VIAL (3 ML) EVERY 6 HOURS NEEDED FOR SHORTNESS OF BREATH OR WHEEZING potassium chloride 10 mEq tablet extended release See Rx Instructions .ROUTE .COMPLEX Qty: 90 3RF Dose Instruction: TAKE 1 TABLET DAILY Rx Instructions: TAKE 1 TABLET DAILY pantoprazole 40 mg tablet,delayed release (DR/EC) See Rx Instructions .ROUTE .COMPLEX Qty: 90 3RF Dose Instruction: TAKE 1 TABLET DAILY Rx Instructions: TAKE 1 TABLET DAILY alendronate 70 mg tablet See Rx Instructions .ROUTE .COMPLEX Qty: 12 3RF Dose Instruction: TAKE 1 TABLET WEEKLY Rx Instructions: TAKE 1 TABLET WEEKLY rosuvastatin 40 mg tablet See Rx Instructions .ROUTE .COMPLEX Qty: 90 3RF Dose Instruction: TAKE 1 TABLET DAILY Rx Instructions: TAKE 1 TABLET DAILY ropinirole 1 mg tablet See Rx Instructions .ROUTE .COMPLEX Qty: 540 3RF Dose Instruction: TAKE 1 TABLET FOUR TIMES A DAY AND 2 TABLETS AT BEDTIME Rx Instructions: TAKE 1 TABLET FOUR TIMES A DAY AND 2 TABLETS AT BEDTIME naproxen [Naprosyn] 500 mg tablet 500 mg PO BID Qty: 180 1RF cyanocobalamin (vitamin B-12) 1,000 mcg tablet 1,000 mcg PO DAILY Qty: 90 3RF albuterol sulfate 90 mcg/actuation HFA aerosol inhaler 2 puff inhalation Q4-6H PRN (Reason: shortness of breath or wheezing) Qty: 25.5 1RF Referrals Follow up/Referrals: Roopa London APRN [Primary Care Provider, Family Practice] - See instructions Activity Restrictions/Add. Instructions Additional Instructions/Restrictions: Your CT scan showed findings of colitis. If you develop intractable pain, significant bleeding from the rectum, or inability to tolerate oral intake please return. Clinical Impressions Clinical Impression: Colitis Print Language Print Language: Wolof Discharge ED Provider: Lizandro Bean Adult HPI General Chief complaint: Upper Respiratory Infection Stated complaint: vomiting, dehydration, dizziness, syncope Time Seen by Provider: 05/15/25 15:56 Mode of Arrival: Ambulatory Source of Information: Patient Description of Symptoms (Recalled from ER Triage Doc. by RN): Pt presents for evaluation of multiple symptoms pt states she has had generalized body aches, sweats, congestion, and cough. Pt reports she has also had diarrhea and nausea. History of Present Illness HPI narrative: This is an 79-year-old female patient, with past medical history of hypertension, hyperlipidemia, and tobacco abuse with COPD, who is presented to the emergency department today for evaluation of gastrointestinal symptoms. Patient states that over the past 4 days she has had nausea, vomiting, and diarrhea at home. Since onset of symptoms she has developed left lower quadrant abdominal pain. No hematochezia or melena. No hematemesis. She describes not being able to tolerate enough oral intake to match her output and has had a couple of episodes at home where she feels near syncopal. She has not completely syncopized. No palpitations, chest pain, or shortness of breath Related Data Home Medications ?Medication ?Instructions ?Recorded ?Confirmed aspirin 81 mg chewable tablet 81 mg PO DAILY 06/24/22 05/15/25 calcium 315 mg (as 1 tab PO BID 06/24/22 05/15/25 citrate)-vitamin D3 6.25 mcg (250 unit) tablet (Citracal + Vitamin D Maximum) multivitamin 1 tab PO DAILY 06/24/22 05/15/25 Previous Rx's ?Medication ?Instructions ?Recorded cholecalciferol (vitamin D3) 125 125 mcg PO DAILY #90 caps 06/24/22 mcg (5,000 unit) capsule fluticasone fur. 100 mcg-umeclid 1 inh inhalation DAILY #3 ea 06/24/22 62.5 mcg-vilant 25 mcg inhalat.powder (Trelegy Ellipta) fluticasone propionate 50 1 spray intranasal DAILY #48 grams 06/24/22 mcg/actuation nasal spray,suspension methocarbamol 750 mg tablet 750 mg PO TID PRN muscle spasm #90 06/24/22 tabs ipratropium 0.5 mg-albuterol 3 mg See Rx Instructions .Route 09/13/23 (2.5 mg base)/3 mL nebulization .COMPLEX #180 mL soln metoprolol succinate 25 mg 12.5 mg (1/2 x 25 mg) PO DAILY #30 03/15/24 tablet,extended release 24 hr tabs potassium chloride 10 mEq See Rx Instructions .Route 09/10/24 tablet,extended release .COMPLEX #90 tabs pantoprazole 40 mg tablet,delayed See Rx Instructions .Route 09/11/24 release .COMPLEX #90 tabs alendronate 70 mg tablet See Rx Instructions .Route 11/26/24 .COMPLEX #12 tabs naproxen 500 mg tablet (Naprosyn) 500 mg PO BID #180 tabs 03/04/25 ropinirole 1 mg tablet See Rx Instructions .Route 03/04/25 .COMPLEX #540 tabs rosuvastatin 40 mg tablet See Rx Instructions .Route 03/04/25 .COMPLEX #90 tabs albuterol sulfate 90 mcg/actuation 2 puff inhalation Q4-6H PRN 03/20/25 aerosol inhaler shortness of breath or wheezing #25.5 grams cyanocobalamin (vitamin B-12) 1,000 mcg PO DAILY #90 tabs 03/20/25 1,000 mcg tablet hyoscyamine sulfate 0.125 mg tablet 0.125 mg PO QID PRN diarrhea or 05/15/25 abdominal cramping #30 tabs levofloxacin 500 mg tablet 500 mg PO Q24H #10 tabs 05/15/25 ondansetron HCl 4 mg tablet 4 mg PO Q8H PRN nausea and 05/15/25 vomiting #20 tabs triamterene 37.5 1 tab PO DAILY #90 tabs 05/15/25 mg-hydrochlorothiazide 25 mg tablet trospium 20 mg tablet 20 mg PO DAILY #90 tabs 05/15/25 Allergies Allergy/AdvReac Type Severity Reaction Status Date / Time moxifloxacin AdvReac Unknown Unknown Verified 05/15/25 10:45 allergy reaction CORTICOSTEROID, OTIC Allergy Unknown Other Uncoded 05/15/25 10:45 From AUGMENTIN Allergy Unknown Unknown Uncoded 05/15/25 10:45 allergy reaction From LIPITOR Allergy Unknown Unknown Uncoded 05/15/25 10:45 allergy reaction TETANUS TOXOID Allergy Unknown Unknown Uncoded 05/15/25 10:45 allergy reaction PFSH PFSH Disclaimer: The information contained in this section may have been updated after the patient was seen, as this information can be updated by other users. Medical History Smoker Typical angina Abnormal ECG Claudication of both lower extremities Dyspnea Diaphoresis Abnormal findings on diagnostic imaging of heart and coronary circulation Abnormal stress test Encounter for annual wellness exam in Medicare patient CAD (coronary artery disease) Pneumonia SOBOE (shortness of breath on exertion) COPD with exacerbation Right inguinal hernia History of tamoxifen therapy Lumbar degenerative disc disease Osteoarthritis Osteoporosis Allergic rhinitis RLS (restless legs syndrome) OAB (overactive bladder) GERD (gastroesophageal reflux disease) Vitamin D deficiency Vitamin B12 deficiency Anemia COPD (chronic obstructive pulmonary disease) Hyperlipidemia Essential hypertension Surgical History Hx of cardiac cath History of hysterectomy History of pelvic surgery History of lumbar surgery History of breast surgery History of cholecystectomy History of back surgery History of lumpectomy of both breasts History of cholecystectomy History of hysterectomy Family History Other Heart attack Stroke Social History Smoking Status: Never smoker alcohol intake: never current occupational status: retired Travel in the last 8 weeks?: None Have you lived/traveled outside US in past 30 days?: No Contact w/someone who lives/traveled outside US past 30 days?: No Exposure to someone with infectious disease in past 14 days?: No Do you have a fever (greater than 100.4 F or 38 C)?: No Have you tested positive for COVID-19?: No Exposed to someone with COVID-19 in past 14 days?: No Do you have a sore throat?: No Do you have a cough?: No Do you have any weakness?: Yes Do you have any diarrhea?: Yes Are you experiencing any unusual bleeding?: No Do you have any muscle aches/pain?: Yes Do you have any abdominal pain?: No Are you experiencing loss of taste or smell?: No Other Medical History Have you received the Pneumonia Vaccine: Yes ROS Obtained: Yes Systems reviewed as appropriate & no additional complaints except as documented Physical Exam General General appearance: other (See MDM) Respiratory Respiratory exam: Present other (See MDM) Cardiovascular Cardiovascular exam: Present other (See MDM) Neurological Exam Neurological exam: Present other (See MDM) Medical Decision Making Medical Records Medical records reviewed: Yes I reviewed the patient's medical records. Screening: Per USPSTF and CDC recommendations, given the prevalence of disease in our region, it is our hospital?s policy to screen for HIV and viral Hepatitis for all patients aged 18 and over and those with ongoing risk factors. Micheal Inquiry Pt receiving controlled substance: No Micheal was queried for this patient: No Vital Signs: 05/15/25 14:41 05/15/25 16:00 05/15/25 16:30 Temperature 98.3 F Temperature Source Oral Pulse Rate 72 69 Pulse Rate [Right] 67 Respiratory Rate 18 15 Blood Pressure 109/53 L 124/62 Blood Pressure [Right Arm] 128/55 L Blood Pressure Mean [Right Arm] 79 Blood Pressure Source [Right Arm] Automatic Cuff Blood Pressure Position [Right Arm] Sitting 02 Sat by Pulse Oximetry 98 98 96 Oxygen Delivery Method Room Air 05/15/25 17:30 05/15/25 18:00 05/15/25 18:30 Temperature Temperature Source Pulse Rate 70 70 69 Pulse Rate [Right] Respiratory Rate 15 20 15 Blood Pressure 146/58 H 128/62 144/59 H Blood Pressure [Right Arm] Blood Pressure Mean [Right Arm] Blood Pressure Source [Right Arm] Blood Pressure Position [Right Arm] 02 Sat by Pulse Oximetry 100 99 98 Oxygen Delivery Method Lab Data Lab Results 05/15/25 11:39: Urine Color Yellow, Urine Appearance Clear, Urine pH 6.0, Ur Specific [place] 1.010, Urine Protein Negative, Urine Glucose (UA) Negative, Urine Ketones Negative, Urine Blood Negative, Urine Nitrate Negative, Urine Bilirubin Negative, Urine Urobilinogen 1.0, Ur Leukocyte Esterase Negative, Urine RBC Occasional, Urine WBC 3-5, Ur Squamous Epith Cells 5-10, Urine Bacteria Trace 05/15/25 14:44: SARS-CoV-2 (PCR) Not detected, Influenza A Untype (PCR) Not detected, Influenza Type B (PCR) Not detected 05/15/25 16:07: WBC 10.8, RBC 4.87, Hgb 14.6, Hct 43.9, MCV 90.1, MCH 30.0, MCHC 33.3, RDW 13.8, Plt Count 320, MPV 8.7, Neut % (Auto) 57.5, Lymph % (Auto) 30.7, Cloud % (Auto) 9.9 H, Eos % (Auto) 1.0, Baso % (Auto) 0.6, Neut # (Auto) 6.2, Lymph # (Auto) 3.3, Cloud # (Auto) 1.1 H, Eos # (Auto) 0.1, Baso # (Auto) 0.1, Sodium 137, Potassium 4.0, Chloride 101, Carbon Dioxide 26, Anion Gap 14.0, BUN 25 H, Creatinine 1.00, Estimated Creat Clear 39, Estimated GFR 53 L, Est GFR ( Amer) 65, Glucose 62 L, Calcium 9.0, Total Bilirubin 0.6, AST 40 H, ALT 33, Alkaline Phosphatase 93, Total Protein 6.8, Albumin 4.2, Globulin 2.6, Albumin/Globulin Ratio 1.6, Lipase 142 05/15/25 16:07 05/15/25 16:07 Orders (Tests/Meds): ED MEDICATIONS Generic Name Dose Route Start Last Admin Trade Name Freq PRN Reason Stop Dose Admin Sodium Chloride 10 ml 05/15/25 17:14 05/15/25 17:15 Sodium Chloride 0.9% 10ml Syr (Rad Only) IV 06/14/25 17:13 10 ml NEEDED PRN Administration Maintain IV Site Discontinued Medications Generic Name Dose Route Start Last Admin Trade Name Freq PRN Reason Stop Dose Admin Lactated Ringer's 1,000 mls @ 999 mls/hr 05/15/25 16:03 05/15/25 16:35 Lactated Ringer's 1000 Ml Bag IV 05/15/25 17:03 999 mls/hr .Q1H1M ONE Administration Iopamidol 75 ml 05/15/25 17:14 05/15/25 17:15 Iopamidol-370 (76%);100ml Bottle IV 05/15/25 17:15 75 ml ONCE ONE Administration ORDERS Category Date Time Status CT abdomen pelvis w con Stat Cat Scan 05/15/25 16:02 Completed XR chest 2V Stat Exams 05/15/25 14:43 Completed CBC w/Auto Diff [Complete Blood Count Auto Diff] Stat Lab 05/15/25 16:07 Completed CMP [Comprehensive Metabolic Panel] Stat Lab 05/15/25 16:07 Completed Lactic Acid Stat Lab 05/15/25 16:02 Ordered Lipase Stat Lab 05/15/25 16:07 Completed Rapid PCR Covid and Flu A/B Stat Lab 05/15/25 14:44 Completed Urinalysis and Microscopic Stat Lab 05/15/25 11:39 Completed Urine Culture Stat Micro 05/15/25 11:39 Received 12-lead EKG Request [ECG Request] Stat Y 05/15/25 16:03 Ordered Medical Decision Narrative: In summary, this is an 79-year-old female patient who is presenting to the emergency department today for evaluation of nausea, vomiting, diarrhea for the last several days with more recent onset left lower quadrant abdominal pain. Comorbidities include a past medical history of hypertension, hyperlipidemia, tobacco abuse and COPD. On initial evaluation of the patient they were resting comfortably in no acute distress and nontoxic in appearance. They are hemodynamically stable, saturating well room air, and are neurologically intact. On physical examination the patient's heart and lungs are clear to auscultation bilaterally. Mucous membranes appear dry. She has focal abdominal tenderness to the left lower quadrant without roberto peritonitis. No lower extremity erythema or edema. Differential diagnosis includes diverticulitis, colitis, gastroenteritis, pancreatitis, among other intra-abdominal catastrophes. Workup was initiated with hematologic labs as well as viral studies and a CT scan of the abdomen and pelvis. Given that she has had some episodes of near syncope this is most likely consistent with dehydration but we will obtain a screening EKG. Initial interventions include 1 L of lactated Ringer's as well as 4 mg of Zofran. Labs were personally interpreted by me and demonstrate no leukocytosis or transfusional anemia. CMP reveals no electrolyte derangement or evidence of acute kidney injury. No significant transaminitis, AST is mildly elevated at 40 upper limit of normal is 36. Lipase is also normal. She is not having any urinary symptoms so I did not feel that urinalysis was indicated. CT scan of the abdomen and pelvis was obtained and was personally interpreted by me and demonstrated no large pneumoperitoneum. There is a hiatal hernia noted by the radiologist as well as thickening and inflammatory change of the sigmoid colon which can be seen in the setting of infectious colitis. I do not note any evidence of diverticulitis. I have informed the patient that this is likely a self-limiting illness. She remains hemodynamically stable and feels improved after Zofran and lactated Ringer's. She actually spoke with her primary care physician earlier in the day and they prescribed her Zofran to the pharmacy so we will not prescribe that to her now. At this time all questions have and answered and all parties are agreeable with the decision to discharge home. Return precautions have been given in the event she has any new or worsening symptoms Critical Care Critical Care Time Critical Care Time: No
[2025-05-15 16:15] LABS: Hematocrit 43.9 % (37.0-47.0); Hemoglobin 14.6 g/dL (12.2-16.2); Immature Granulocytes % 0.3 %; Mean Corpuscular HGB Conc 33.3 g/dL (31.8-35.4); Mean Corpuscular Hemoglobin 30.0 pg (27.0-31.2); Mean Corpuscular Volume 90.1 fl (81-99); Nucleated Red Blood Cells % 0 %; Platelet Count 320 K/mm3 (142-424); Red Blood Count 4.87 M/mm3 (4.20-5.40); Red Cell Distribution Width-SD 45.9 fL; White Blood Count 10.8 K/mm3 (4.8-10.8)
--- NOTE | 2025-05-15 16:16 | ECG_ITS ---
APPROVED REPORT Exam: Resting ECG HR:71 bpm ECG Measurements Heart Rate 71 AXES OH 167 P 73 QRSd 79 QRS 62 QT 382 T 50 QTc 405 Conclusion SINUS RHYTHM NORMAL ECG UNCONFIRMED REPORT Electronically signed by : NITZA ABDUL, 05/16/2025 00:36:03
[2025-05-15 16:25] LABS: Microscopic, Urine URINE MICROSCOPIC (MICROSCOPIC)
[2025-05-15 16:32] LABS: Bilirubin,Urine Negative (Negative); Color,Urine YELLOW (Yellow); Glucose,Urine (UA) Negative (Negative); Ketones,Urine Negative (Negative); Leukocyte Esterase,Urine Negative (Negative); PH,Urine 6.0 (5.0-8.5); Protein,Urine Negative (Negative); Specific Gravity, Urine 1.010 (1.005-1.030); Urobilinogen,Urine 1.0 EU/dl (0.2)
[2025-05-15] MEDS: LACTATED RINGERS 1000ML 1,000 ML 999 ML IV (16:35)
[2025-05-15 16:45] LABS: Alanine Aminotransferase 33 U/L (12-78); Albumin Level 4.2 g/dl (3.5-5.0); Albumin/Globulin Ratio 1.6 (1.1-1.8); Alkaline Phosphatase 93 U/L (38-126); Anion Gap 14.0 mEq/L (5-15); Aspartate Amino Transferase 40 U/L (14-36); Bilirubin,Total 0.6 mg/dl (0.2-1.3); Blood Urea Nitrogen 25 mg/dl (7-17); Calcium 9.0 mg/dl (8.4-10.2); Carbon Dioxide 26 mmol/L (22.0-30.0); Chloride 101 mmol/L (98-107); Creatinine Clearance Estimated 39 mL/min (50-200); Creatinine,Serum 1.00 mg/dl (0.52-1.04); Estimated Glomerular Filt Rate 53 ml/min (>60); GFR (African American) 65 ML/MIN (>60); Globulin 2.6 g/dL (1.3-3.2); Glucose 62 mg/dl (74-100); Lipase 142 U/L (23-300); Potassium 4.0 mmoL/L (3.5-5.1); Sodium 137 mmol/L (136-145); Total Protein,Serum 6.8 g/dl (6.3-8.2)
[2025-05-15 17:01] LABS: Bacteria,Urine Trace /lpf
[2025-05-15 17:02] LABS: RBC,Urine Occasional #/hpf (0-3)
[2025-05-15] MEDS: IOPAMIDOL-370 (76%);100ML BOTTLE 75 ML IV (17:15)
[2025-05-15] MEDS: SODIUM CHLORIDE 0.9% 10ML SYR (RAD ONLY) 10 ML IV (17:15)
== END 2025-05-15 19:15 | disposition home or self-care (01) ==
PROVIDERS: Emergency Medicine; Emergency Provider Student in an Organized Health Care Education/Training Program; PCP Nurse Practitioner
DX: R10.32 Left lower quadrant pain (principal); K52.9 Noninfective gastroenteritis and colitis, unspecified; R11.2 Nausea with vomiting, unspecified
CPT/HCPCS: 71046; 74177; 80053; 81001; 83690; 85025; 87086; 87636; 93005; 96360; 99285; J7120; Q9967

== ENCOUNTER 2025-06-27 12:59 | Outpatient (CLI) | payer MEDICARE, OTHER, SELFPAY ==
--- NOTE | 2025-06-27 13:02 | XR_ITS ---
FINAL REPORT CLINICAL HISTORY: cervicalgia pain limited rom pain radiates up into head, into shoulders COMPARISON: None FINDINGS: Three views of the cervical spine were obtained. There is no fracture present. There is reversal of the cervical lordosis. The vertebrae are normal in height. There is moderate disc space narrowing C4-5, C5-6, and C6-7. IMPRESSION: Degenerative changes without acute process. Reviewed, Interpreted and Dictated by Ramo Arnold MD Transcribed by Palma Thompson Authenticated and [facility]
--- OUTSIDE RECORDS SUMMARY | 2025-06-27 14:55 | XMS_ITS ---
Author Organization Unknown ENCOUNTERS Encounter Performer Location Date Diagnosis Diagnosis Status Pre Admit [facility] [address] [place] [address] [id number] Emergency [facility] [address] [place] [id number] [place] *Note: Encounters from your own facility or health system may be excluded. Allergies, Adverse Reactions, Alerts Allergen Type Severity Identification Date moxifloxacin drug allergy [id number] Medications Name Date Quantity Days Supplied GPI Number
== END 2025-06-27 23:59 | disposition home or self-care (01) ==
LOC: RAD 13:00
PROVIDERS: PCP Nurse Practitioner; Visit Provider Nurse Practitioner
DX: M50.321 Other cervical disc degeneration at C4-C5 level (principal); M50.322 Other cervical disc degeneration at C5-C6 level; M50.323 Other cervical disc degeneration at C6-C7 level; M40.202 Unspecified kyphosis, cervical region
CPT/HCPCS: 72040